=== PATIENT | male | born 1940 | race Caucasian/White ===

== ENCOUNTER 2016-08-02 23:28 | Inpatient (IN) | payer MEDICARE ==
[~2016-08-02] VITALS: Ht 177.8 cm; Wt 83.5 kg
[~2016-08-02 23:28] MED LIST: ACET65TA OR; ALBU17IN INH; AMLO5TAB PO; AMLO5TAB2 PO; ASMANEX TWISTHALER INH; ASPI325T PO; AVEL1TAB PO; CEFT500T OR; CELE20TA PO; CITA20TA4 PO; FLUN25SP; FLUNISOLIDE; FOSI20TA2 PO; LEVO500T32 PO; LISI-538 PO; PRED10TA PO; PROS5TAB PO; SIMV40TA2 PO; SYMB80INH INH; TIOT18INH INH; XOPEAER IN; ZITH250T OR; [UNRECOGNIZED DRUG - OTHER] INH
[2016-08-03] MEDS ORDERED: dexameTHASONE 4 MG/ML 1ML VIAL (J1100) As Ordered ONE (00:11)
[2016-08-03] MEDS ORDERED: IPRATROPIUM 0.5MG/ALBUTEROL 2.5MG INH SOL UD 3ML (DUONEB)(J7620) As Ordered ONE ×3 (00:23→01:16)
[2016-08-03 00:34] LABS: BASO % 0.3 % (0.0-1.0); EOS # 0.3 K/mm3 (0.0-0.50); EOS % 4.3 % (0.0-3.0); LARGE UNSTAINED CELL # 0.2 K/mm3 (0.0-0.4); LARGE UNSTAINED CELL % 2.7 % (0.0-4.0); LYMPH # 1.3 K/mm3 (1.5-4.5); LYMPH % 14.5 % (24.0-44.0); MEAN CORPUSCULAR HEMOGLOBIN 30.4 pg (27.0-33.0); MEAN CORPUSCULAR HGB CONC 32.7 g/dl (32.0-36.5); MONO # 0.5 K/mm3 (0.0-0.8); MONO % 6.7 % (0.0-5.0); NEUTROPHILS # 5.3 K/mm3 (1.8-7.7); NEUTROPHILS % 71.6 % (36.0-66.0); PLATELET COUNT, AUTOMATED 276 k/mm3 (150-450); RED CELL DISTRIBUTION WIDTH 14.4 % (11.5-14.5); WHITE BLOOD COUNT 7.4 K/mm3 (4.0-10.0)
[2016-08-03 00:43] LABS: ABG BASE EXCESS -4.9 (-2.0-2.0); ABG DEVICE NASAL CANN; ABG HCO3 19.1 MEQ/L (22.0-26.0); ABG PARTIAL PRESSURE CO2 32.4 mmHg (35.0-45.0); ABG PARTIAL PRESSURE O2 61.8 mmHg (75.0-100.0); ABG STANDARD HCO3 20.3 MEQ/L (22.0-26.0); ABG TOTAL CO2 20.1 MEQ/L (23.0-31.0); ABG pH (ARTERIAL) 7.388 UNITS (7.350-7.450)
[2016-08-03 00:51] LABS: CALCIUM LEVEL 8.2 MG/DL (8.8-10.2); CREATININE FOR GFR 1.57 MG/DL (0.70-1.30); GLOMERULAR FILTRATION RATE 46.1 (>42); POTASSIUM SERUM 3.9 MEQ/L (3.5-5.1)
[2016-08-03] MEDS ORDERED: IPRATROPIUM 0.5MG/ALBUTEROL 2.5MG INH SOL UD 3ML (DUONEB)(J7620) NEB PRN (04:30)
[2016-08-03] MEDS ORDERED: ACETAMINOPHEN TAB 650MG DOSE (2X325MG) PO PRN (04:45)
[2016-08-03] MEDS ORDERED: ONDANSETRON 4MG/2ML VIAL (J2405) IV PRN (04:45)
--- NOTE | 2016-08-03 05:39 | EDDOCDS ---
"Nurse's Notes [facility] Name: Shahram Arthur Age: 75 yrs Sex: Male : 1940 Arrival Date: 08/02/2016 Time: 23:28 Bed 9 Private MD: Diagnosis: Chronic obstructive pulmonary disease with (acute) exacerbation Presentation: 08/02 23:48 Presenting complaint: Patient states: Increased SOB since Thursday so called EMS. Adult ko2 Sepsis Screening: The patient does not have new or worsening altered mentation. Patient's respiratory rate is less than 22. Systolic blood pressure is greater than 100. Patient has a qSOFA score of 0- Negative Sepsis Screen. Suicide/Homicide risk assessment- the patient denies having any suicidal and/or homicidal ideations and does not present with any other emotional, behavioral or mental health complaints. Status: Patient is not a office services representative or dependent. Transition of care: patient was not received from another setting of care. Care prior to arrival: See EMS report. Medications administered prior to arrival: Albuterol Neb X2 , Atrovent and Solumedrol 125mg administered by EMS. 23:48 Acuity: PASCUAL Level 3 ko2 23:48 Method Of Arrival: Ambulance ko2 Triage Assessment: 23:51 General: Appears in no apparent distress. Pain: Denies pain. The patient is triaged at ko2 the bedside. See Assessment in Nurses Notes section of ED record. Neurological: Level of Consciousness is awake, alert. Cardiovascular: Heart tones S1 S2 present Rhythm is regular. Respiratory: Onset: The symptoms/episode began/occurred gradually, Airway is patent Respiratory effort is even, unlabored, Breath sounds are diminished bilaterally. GI: Abdomen is non- distended. Derm: Skin is normal. Historical: - Allergies: No known drug Allergies; - Home Meds: 1. amlodipine 5 mg Oral tab 1 tab once daily 2. aspirin 325 mg Oral TbEC 1 tab once daily 3. citalopram 20 mg Oral tab 1 tab once daily 4. finasteride 5 mg oral tab 1 tab once daily 5. flunisolide 2 spray daily 6. lisinopril 20 mg Oral tab 1 tab once daily 7. simvastatin 40 mg Oral tab 1 tab every other day 8. Spiriva with HandiHaler 18 mcg Inhl CpDv 1 cap once daily 9. symbicort 2 puff twice a day 10. ventalin 1 spray daily - PMHx: COPD; CVA; Depression; Hypertension; hyperlipidemia; - PSHx: none; - Social history: Smoking status: Patient states former smoker of tobacco. No barriers to communication noted, The patient speaks fluent [place], Speaks appropriately for age. - Family history: Not pertinent. - : The pt / caregiver states he / she is not on anticoagulants. Home medication list is obtained from the patient. - Exposure Risk Screening:: None identified. Screenin/05 00:26 Screening information is obtained from the patient. Fall risk: No risks identified. ko2 Assistance ADL's: requires no assistance with activities of daily living. Abuse/DV Screen: The patient / caregiver reports he/she is: not in a situation that causes fear, pain or injury. Nutritional screening: No deficits noted. Advance Directives: Currently, there is no health care proxy. There is no active DNR order. There is no living will. There is no Power of Visual Education Director. 00:27 home support is adequate. ko2 Assessment: 08/02 23:52 General: See triage assessment. ko2 08/03 01:08 General: Appears in no apparent distress, comfortable, Behavior is appropriate for age, ko2 cooperative. Pain: Denies pain. Neurological: Level of Consciousness is awake, alert. Cardiovascular: Rhythm is regular. Respiratory: Airway is patent Respiratory effort is even, unlabored. Derm: Skin is normal. 02:00 General: Appears in no apparent distress, comfortable, Behavior is appropriate for age, ko2 cooperative. Pain: Denies pain. Neurological: Level of Consciousness is awake, alert. Respiratory: Airway is patent Respiratory effort is even, unlabored. Derm: Skin is normal. 03:06 General: Appears comfortable, Behavior is cooperative. Pain: Denies pain. Neurological: ko2 Level of Consciousness is awake, alert. Respiratory: Airway is patent Respiratory effort is even, unlabored. Derm: Skin is pink, warm & dry. 04:18 General: Appears in no apparent distress, comfortable, Behavior is appropriate for age, ko2 cooperative. Neurological: Level of Consciousness is awake, alert. Respiratory: Airway is patent Respiratory effort is even, unlabored. Derm: Skin is normal. 05:01 General: Appears in no apparent distress, comfortable, Behavior is appropriate for age, ko2 cooperative. Neurological: Level of Consciousness is awake, alert. Respiratory: Airway is patent Respiratory effort is even, unlabored. Derm: Skin is normal. Vital Signs: 08/02 23:39 BP 136 / 66 (auto/); 23:42 BP 136 / 66; Pulse 76; Resp 20; Temp 98.7(TE); Pulse Ox 92% on R/A; Weight 79.83 kg estrella (R); Height 5 ft. 10 in. (177.80 cm) (R); Pain 0/10; 23:42 Pulse 76 MON; Pulse Ox 93% ; ko2 23:53 Pulse 68 MON; Pulse Ox 92% ; ko2 23:54 BP 127 / 55 (auto/); ko2 08/03 00:07 Pulse 70 MON; Pulse Ox 92% ; ko2 00:09 BP 120 / 58 (auto/); ko2 00:24 BP 144 / 63 (auto/); ko2 00:24 Pulse 78 MON; Pulse Ox 90% ; ko2 00:44 Pulse 76 MON; Pulse Ox 90% ; ko2 00:54 BP 132 / 63 (auto/); ko2 01:39 BP 141 / 70 (auto/); ko2 01:42 Pulse 92 MON; Pulse Ox 89% ; ko2 01:52 Pulse 98 MON; Pulse Ox 87% ; ko2 01:54 BP 122 / 69 (auto/); ko2 02:09 BP 136 / 76 (auto/); ko2 02:09 Pulse 106 MON; Pulse Ox 89% ; ko2 02:24 BP 131 / 63 (auto/); ko2 02:24 Pulse 106 MON; Pulse Ox 88% ; ko2 02:39 Pulse 106 MON; Pulse Ox 88% ; ko2 02:39 BP 141 / 72 (auto/); ko2 02:40 Pulse 102 MON; Pulse Ox 89% ; ko2 02:54 BP 110 / 55 (auto/); ko2 05:02 BP 133 / 60; Pulse 85; Resp 18; Temp 98.1; Pulse Ox 92% on NC; Pain 0/10; ko2 08/02 23:42 Body Mass Index 25.25 (79.83 kg, 177.80 cm) estrella Vitals: 00:26 Log In Time N/A - ambulance arrival. ko2 ED Course: 08/02 23:29 Patient visited by Irvin Greenberg, Dredge Mechanic. ml3 23:29 Patient moved to Waiting ml3 23:38 Inga Collier,RN is Primary Nurse. ml3 23:38 Hunter Palacio DO is Attending Physician. cs11 23:38 Patient visited by Hunter Palacio DO. cs11 23:38 Patient moved to 9 ml3 23:42 Patient visited by Shellie Zhu PCA. estrella 23:42 Pt greeted and oriented to ED. Patient advised of names of staff involved in care, estrella location of call mccann, wait times and NPO status. Patient has correct armband on for positive identification. Placed in gown. Bed in low position. Call light in reach. Side rails up X2. court monitor on. Pulse ox on. NIBP on. 23:49 Triage Initiated ko2 23:53 Maintain field IV. Dressing intact. Good blood return noted. Site clean & dry. Gauge & ko2 site: 18 gauge left AC. 08/03 00:22 Patient visited by Inga Collier RN. ko2 00:23 CBC with Diff Sent. ko2 00:23 MED Profile Sent. ko2 00:23 BNP Sent. ko2 00:27 The patient / caregiver is instructed regarding the plan of care and ED course. ko2 00:33 -Arterial Blood Gas Sent. jh6 00:54 [facility] Payment Agreement was scanned into [employer] - innov[employer] | mentor | invest and attached to record. pm4 01:08 Patient visited by Inga Collier RN. ko2 02:09 Patient visited by Inga Collier,MARCIA. ko2 03:06 Patient visited by Inga Collier RN. ko2 04:03 Patient visited by Inga Collier,MARCIA. ko2 04:04 Jenny Vicente is Hospitalizing Provider. cs11 05:01 No procedures done that require assistance. ko2 Administered Medications: 00:22 Drug: Dexamethasone 8 mg [dexamethasone 4 mg/mL injection solution] Route: IV; Rate: ko2 bolus; Site: left antecubital; 00:25 Drug: Albuterol-Ipratropium 1 neb [ipratropium-albuterol 0.5 mg-3 mg(2.5 mg base)/3 mL [facility] nebulization soln (1 neb)] Route: Nebulizer; 00:54 Drug: Albuterol-Ipratropium 1 neb [ipratropium-albuterol 0.5 mg-3 mg(2.5 mg base)/3 mL 6 nebulization soln (1 neb)] Route: Nebulizer; 01:17 Drug: Albuterol-Ipratropium 1 neb [ipratropium-albuterol 0.5 mg-3 mg(2.5 mg base)/3 mL 6 nebulization soln (1 neb)] Route: Nebulizer; RT: 00:25 Initial Med Neb Given as ordered Patient was instructed and evaluated on procedure jh6 Patient tolerated procedure well without adverse effect. Respiratory: Airway is patent Respiratory effort is even, unlabored, Respiratory pattern is regular symmetrical, Breath sounds are diminished in left posterior upper lobe, right posterior upper lobe, left posterior lower lobe, right posterior middle lobe and right posterior lower lobe. 00:33 ABG's drawn from left radial artery pressure held for 5 minutes no bleeding noted jh6 pressure bandage applied specimen sent pt. tolerated well. Respiratory: Airway is patent Respiratory effort is even, unlabored, Respiratory pattern is regular symmetrical, Breath sounds are clear in left posterior upper lobe, right posterior upper lobe, left posterior lower lobe, right posterior middle lobe and right posterior lower lobe Breath sounds are diminished in left posterior upper lobe, right posterior upper lobe, left posterior lower lobe, right posterior middle lobe and right posterior lower lobe. 00:54 Subsequent Med Neb Given as ordered Patient was reinforced on procedure Patient jh6 tolerated procedure well without adverse effect. Respiratory: Airway is patent Respiratory effort is even, unlabored, Respiratory pattern is regular symmetrical, Breath sounds with crackles in left posterior lower lobe and right posterior lower lobe Breath sounds are diminished in left posterior upper lobe, right posterior upper lobe, left posterior lower lobe, right posterior middle lobe and right posterior lower lobe. 01:02 Respiratory: Airway is patent Respiratory effort is even, unlabored, Respiratory jh6 pattern is regular symmetrical, Breath sounds with crackles in left posterior lower lobe and right posterior lower lobe Breath sounds are diminished in left posterior upper lobe, right posterior upper lobe, left posterior lower lobe, right posterior middle lobe and right posterior lower lobe. 01:18 Respiratory: Airway is patent Respiratory effort is even, unlabored, Respiratory jh6 pattern is regular symmetrical, Breath sounds with crackles in left posterior lower lobe and right posterior lower lobe Breath sounds are diminished in left posterior upper lobe, right posterior upper lobe, left posterior lower lobe, right posterior middle lobe and right posterior lower lobe. 01:27 Respiratory: Airway is patent Respiratory effort is even, unlabored, Respiratory jh6 pattern is regular symmetrical, Breath sounds with crackles in left posterior lower lobe, right posterior middle lobe and right posterior lower lobe Breath sounds are diminished in left posterior upper lobe, right posterior upper lobe, left posterior lower lobe, right posterior middle lobe and right posterior lower lobe. Order Results: Lab Order: CBC with Diff; SPEC'M 08/03/16 00:19 Test: WHITE BLOOD COUNT; Value: 7.4; Range: 4.0-10.0; Units: K/mm3; Status: F Test: RED BLOOD COUNT; Value: 4.09; Range: 4.30-6.10; Abnormal: Below low normal; Units: M/mm3; Status: F Test: HEMOGLOBIN; Value: 12.4; Range: 14.0-18.0; Abnormal: Below low normal; Units: g/dl; Status: F Test: HEMATOCRIT; Value: 38.0; Range: 42.0-52.0; Abnormal: Below low normal; Units: %; Status: F Test: MEAN CORPUSCULAR VOLUME; Value: 93.0; Range: 80.0-96.0; Units: fl; Status: F Test: MEAN CORPUSCULAR HEMOGLOBIN; Value: 30.4; Range: 27.0-33.0; Units: pg; Status: F Test: MEAN CORPUSCULAR HGB CONC; Value: 32.7; Range: 32.0-36.5; Units: g/dl; Status: F Test: RED CELL DISTRIBUTION WIDTH; Value: 14.4; Range: 11.5-14.5; Units: %; Status: F Test: PLATELET COUNT, AUTOMATED; Value: 276; Range: 150-450; Units: k/mm3; Status: F Test: NEUTROPHILS %; Value: 71.6; Range: 36.0-66.0; Abnormal: Above high normal; Units: %; Status: F Test: LYMPH %; Value: 14.5; Range: 24.0-44.0; Abnormal: Below low normal; Units: %; Status: F Test: MONO %; Value: 6.7; Range: 0.0-5.0; Abnormal: Above high normal; Units: %; Status: F Test: EOS %; Value: 4.3; Range: 0.0-3.0; Abnormal: Above high normal; Units: %; Status: F Test: BASO %; Value: 0.3; Range: 0.0-1.0; Units: %; Status: F Test: LARGE UNSTAINED CELL %; Value: 2.7; Range: 0.0-4.0; Units: %; Status: F Test: NEUTROPHILS #; Value: 5.3; Range: 1.8-7.7; Units: K/mm3; Status: F Test: LYMPH #; Value: 1.3; Range: 1.5-4.5; Abnormal: Below low normal; Units: K/mm3; Status: F Test: MONO #; Value: 0.5; Range: 0.0-0.8; Units: K/mm3; Status: F Test: EOS #; Value: 0.3; Range: 0.0-0.50; Units: K/mm3; Status: F Test: BASO #; Value: 0.0; Range: 0.0-0.2; Units: K/mm3; Status: F Test: LARGE UNSTAINED CELL #; Value: 0.2; Range: 0.0-0.4; Units: K/mm3; Status: F Lab Order: [facility] Profile; SPEC'M 08/03/16 00:19 Test: GLUCOSE, FASTING; Value: 111; Range: 83-110; Abnormal: Above high normal; Units: MG/DL; Status: F Test: BLOOD UREA NITROGEN; Value: 30; Range: 7-18; Abnormal: Above high normal; Units: MG/DL; Status: F Test: CREATININE FOR GFR; Value: 1.57; Range: 0.70-1.30; Abnormal: Above high normal; Units: MG/DL; Status: F Test: GLOMERULAR FILTRATION RATE; Value: 46.1; Range: >42; Status: F Test: SODIUM LEVEL; Value: 138; Range: 136-145; Units: MEQ/L; Status: F Test: POTASSIUM SERUM; Value: 3.9; Range: 3.5-5.1; Units: MEQ/L; Status: F Test: CHLORIDE LEVEL; Value: 104; Range: 98-107; Units: MEQ/L; Status: F Test: CARBON DIOXIDE LEVEL; Value: 25; Range: 21-32; Units: MEQ/L; Status: F Test: ANION GAP; Value: 9; Range: 8-16; Units: MEQ/L; Status: F Test: CALCIUM LEVEL; Value: 8.2; Range: 8.8-10.2; Abnormal: Below low normal; Units: MG/DL; Status: F Test Note: ; Units are mL/min/1.73 m2 Chronic Kidney Disease Staging per NKF: Stage I & II GFR >=60 Normal to Mildly Decreased Stage III GFR 30-59 Moderately Decreased Stage IV GFR 15-29 Severely Decreased Stage V GFR <15 Very Little GFR Left ESRD GFR <15 on EDGE BASTER Lab Order: BNP; SPEC'M 08/03/16 00:19 Test: BRAIN NATRIURETIC PEPTIDE; Value: 226; Range: <100; Abnormal: Above high normal; Units: PG/ML; Status: F Lab Order: -Arterial Blood Gas; SPEC'M 08/03/16 00:33 Test: ABG pH (ARTERIAL); Value: 7.388; Range: 7.350-7.450; Units: UNITS; Status: F Test: ABG PARTIAL PRESSURE CO2; Value: 32.4; Range: 35.0-45.0; Abnormal: Below low normal; Units: mmHg; Status: F Test: ABG PARTIAL PRESSURE O2; Value: 61.8; Range: 75.0-100.0; Abnormal: Below low normal; Units: mmHg; Status: F Test: ABG TOTAL CO2; Value: 20.1; Range: 23.0-31.0; Abnormal: Below low normal; Units: MEQ/L; Status: F Test: ABG HCO3; Value: 19.1; Range: 22.0-26.0; Abnormal: Below low normal; Units: MEQ/L; Status: F Test: ABG BASE EXCESS; Value: -4.9; Range: -2.0-2.0; Abnormal: Below low normal; Status: F Test: ABG STANDARD HCO3; Value: 20.3; Range: 22.0-26.0; Abnormal: Below low normal; Units: MEQ/L; Status: F Test: ABG O2 SATURATION; Value: 91.7; Range: 95.0-99.0; Abnormal: Below low normal; Units: %; Status: F Test: ABG DEVICE; Value: NASAL RYAN; Status: F Outcome: 04:04 Decision to Hospitalize by Provider. cs11 05:17 Discharge Assessment: Patient awake, alert and oriented x 3. No cognitive and/or ko2 functional deficits noted. Patient verbalized understanding of disposition instructions. patient administered narcotics - no. The following High Risk Discharge criteria are identified: None. Admitted to Floor accompanied by tech, via stretcher, with oxygen. Condition: stable. Discharge instructions given to patient. No special radiology studies were completed. Property sent home with patient. 05:17 Admission hand-off: Report Faxed Fax receipt verified by MARCIA Aguilar 5 Jj. ko2 05:38 Patient left the ED. ko2 Signatures: Irvin Greenberg, Dredge Mechanic Unit ml3 Shellie Zhu, SAND PLANT ATTENDANT SAND PLANT ATTENDANT Nito Beatty jh6 Hunter Palacio, DO cs11 Inga Collier RN RN ko2 Sean Guzman, Reg Reg pm4 MTDD"
--- NOTE | 2016-08-03 05:39 | EDDOCDS ---
Physician Documentation [facility] Name: Shahram Arthur Age: 75 yrs Sex: Male : 1940 Arrival Date: 08/02/2016 Time: 23:28 Bed 9 Private MD: Disposition: 08/03/16 04:04 Hospitalization ordered by Jenny Vicente for Inpatient Admission. Preliminary diagnosis is Chronic obstructive pulmonary disease with (acute) exacerbation. - Bed requested for 5 Gardner. - Status is Inpatient Admission. ko2 - Condition is Stable. - Problem is chronic. - Symptoms have improved. Historical: - Allergies: No known drug Allergies; - Home Meds: 1. amlodipine 5 mg Oral tab 1 tab once daily 2. aspirin 325 mg Oral TbEC 1 tab once daily 3. citalopram 20 mg Oral tab 1 tab once daily 4. finasteride 5 mg oral tab 1 tab once daily 5. flunisolide 2 spray daily 6. lisinopril 20 mg Oral tab 1 tab once daily 7. simvastatin 40 mg Oral tab 1 tab every other day 8. Spiriva with HandiHaler 18 mcg Inhl CpDv 1 cap once daily 9. symbicort 2 puff twice a day 10. ventalin 1 spray daily - PMHx: COPD; CVA; Depression; Hypertension; hyperlipidemia; - PSHx: none; - Social history: Smoking status: Patient states former smoker of tobacco. No barriers to communication noted, The patient speaks fluent Dive[place], Speaks appropriately for age. - Family history: Not pertinent. - : The pt / caregiver states he / she is not on anticoagulants. Home medication list is obtained from the patient. - Exposure Risk Screening:: None identified. Vital Signs: 08/02 23:39 BP 136 / 66 (auto/); ko2 23:42 BP 136 / 66; Pulse 76; Resp 20; Temp 98.7(TE); Pulse Ox 92% on R/A; Weight 79.83 kg / estrella 176 lbs (R); Height 5 ft. 10 in. (177.80 cm) (R); Pain 0/10; 23:42 Pulse 76 MON; Pulse Ox 93% ; ko2 23:53 Pulse 68 MON; Pulse Ox 92% ; ko2 23:54 BP 127 / 55 (auto/); ko2 08/03 00:07 Pulse 70 MON; Pulse Ox 92% ; ko2 00:09 BP 120 / 58 (auto/); ko2 00:24 BP 144 / 63 (auto/); ko2 00:24 Pulse 78 MON; Pulse Ox 90% ; ko2 00:44 Pulse 76 MON; Pulse Ox 90% ; ko2 00:54 BP 132 / 63 (auto/); ko2 01:39 BP 141 / 70 (auto/); ko2 01:42 Pulse 92 MON; Pulse Ox 89% ; ko2 01:52 Pulse 98 MON; Pulse Ox 87% ; ko2 01:54 BP 122 / 69 (auto/); ko2 02:09 BP 136 / 76 (auto/); ko2 02:09 Pulse 106 MON; Pulse Ox 89% ; ko2 02:24 BP 131 / 63 (auto/); ko2 02:24 Pulse 106 MON; Pulse Ox 88% ; ko2 02:39 Pulse 106 MON; Pulse Ox 88% ; ko2 02:39 BP 141 / 72 (auto/); ko2 02:40 Pulse 102 MON; Pulse Ox 89% ; ko2 02:54 BP 110 / 55 (auto/); ko2 05:02 BP 133 / 60; Pulse 85; Resp 18; Temp 98.1; Pulse Ox 92% on NC; Pain 0/10; ko2 08/02 23:42 Body Mass Index 25.25 (79.83 kg, 177.80 cm) estrella MDM: 08/02 23:52 Chest, 2 View (pa\E\lat) Ordered. EDMS 02 00:03 IV Saline Lock ordered. cs11 00:03 Albuterol-Ipratropium 1 neb Nebulizer every 20 minutes x3 ordered. cs11 00:03 Call Respiratory ordered. cs11 00:03 Call Respiratory ordered. cs11 00:03 Dexamethasone 8 mg IV at bolus once ordered. cs11 00:03 Call Respiratory complete. ml3 00:03 Call Respiratory complete. ml3 00:03 CBC with Diff Ordered. EDMS 00:03 MED Profile Ordered. EDMS 00:03 BNP Ordered. EDMS 00:03 -Arterial Blood Gas Ordered. EDMS 00:08 Financial registration complete. pm4 00:54 [facility] [place] Agreement was scanned into [employer] and attached to record. pm4 01:52 CBC with Diff Reviewed. cs11 01:52 MED Profile Reviewed. cs11 01:52 BNP Reviewed. cs11 01:52 -Arterial Blood Gas Reviewed. cs11 04:05 BED REQUEST+ADM ordered. EDMS 04:34 ELECTROCARDIOGRAM ADULT ordered. EDMS 04:35 C REACTIVE PROTEIN QUANTITATIV Ordered. EDMS 04:35 COMPLETE BLOOD COUNT Ordered. EDMS 04:35 BASIC METABOLIC PROFILE Ordered. EDMS 04:35 MAGNESIUM LEVEL Ordered. EDMS 04:35 RESPIRATORY PANEL Ordered. EDMS 04:35 BLOOD CULTURES Ordered. EDMS 04:35 SPUTUM CULTURE AND GRAM STAIN Ordered. EDMS 04:35 MRSA SCREEN Ordered. EDMS 04:37 PHYSICAL THERAPY EVAL ONLY ordered. EDMS 04:39 Admission / Observation Status ordered. EDMS 04:39 LOW FAT LOW CHOLESTEROL DIET ordered. EDMS Administered Medications: 00:22 Drug: Dexamethasone 8 mg [dexamethasone 4 mg/mL injection solution] Route: IV; Rate: ko2 bolus; Site: left antecubital; 00:25 Drug: Albuterol-Ipratropium 1 neb [ipratropium-albuterol 0.5 mg-3 mg(2.5 mg base)/3 mL jh6 nebulization soln (1 neb)] Route: Nebulizer; 00:54 Drug: Albuterol-Ipratropium 1 neb [ipratropium-albuterol 0.5 mg-3 mg(2.5 mg base)/3 mL jh6 nebulization soln (1 neb)] Route: Nebulizer; 01:17 Drug: Albuterol-Ipratropium 1 neb [ipratropium-albuterol 0.5 mg-3 mg(2.5 mg base)/3 mL jh6 nebulization soln (1 neb)] Route: Nebulizer; Signatures: Dispatcher [employer] EDMS YariShira amezcuazabeth, Supervisor Costuming Unit ml3 Ivone Dickerson, RN RN [id number] Hunter Palacio DO DO cs11 Inga Collier RN RN ko2 Sean Guzman, Reg Reg pm4 Nito Danielle 6 The chart was reviewed and I authenticate all verbal orders and agree with the evaluation and treatment provided.Attachments: 00:54 [facility] Payment Agreement pm4 MTDD
[2016-08-03 05:45] VITALS: BP 133/68
[2016-08-03] MEDS: AZITHROMYCIN INJ 500 MG, VIAL MATE ADAPTER 1 EACH in D5W 250 ML IV SCH (06:29)
[2016-08-03] MEDS: HEPARIN SOD (PORCINE) 5000 UNITS/ML VIAL SC SCH ×2 (06:29→17:11)
[2016-08-03 06:40] LABS: MEAN CORPUSCULAR HEMOGLOBIN 30.7 pg (27.0-33.0); MEAN CORPUSCULAR HGB CONC 32.9 g/dl (32.0-36.5); MEAN CORPUSCULAR VOLUME 93.1 fl (80.0-96.0); WHITE BLOOD COUNT 4.9 K/mm3 (4.0-10.0)
[2016-08-03 06:59] LABS: CALCIUM LEVEL 8.9 MG/DL (8.8-10.2); CREATININE FOR GFR 1.86 MG/DL (0.70-1.30); GLOMERULAR FILTRATION RATE 37.9 (>42); MAGNESIUM LEVEL 1.8 MG/DL (1.8-2.4); POTASSIUM SERUM 4.2 MEQ/L (3.5-5.1)
[2016-08-03] MEDS: IPRATROPIUM 0.5MG/ALBUTEROL 2.5MG INH SOL UD 3ML (DUONEB)(J7620) NEB SCH ×2 (07:06→12:28)
[2016-08-03] MEDS: methylPREDNISolone INJ 125 MG/2 ML VIAL (J2930) IV SCH ×2 (08:22→16:38)
[2016-08-03] MEDS: SENOKOT S TAB PO SCH ×2 (08:22→20:47)
[2016-08-03] MEDS: cefTRIAXone SOD 1 GM in D5W MINI-BAG PLUS 50 ML IV SCH (08:22)
[2016-08-03] MEDS: PANTOPRAZOLE 40MG TAB (PROTONIX) PO SCH (08:22)
[2016-08-03] MEDS: LISINOPRIL 20 MG TAB PO SCH (08:23)
[2016-08-03] MEDS: amLODIPine 5 MG TAB PO SCH (08:23)
[2016-08-03] MEDS: FLUTICASONE PROP 0.05% NASAL SPRAY 16 GM (FLONASE) SCH ×2 (08:23→20:47)
[2016-08-03] MEDS: guaiFENesin ER 600 MG TAB PO SCH ×2 (08:23→20:48)
--- NOTE | 2016-08-03 08:30 | REP ---
CHEST X-RAY: Two views. HISTORY: Shortness of breath. Comparison chest x-ray 02/16/2016. FINDINGS: EKG monitoring electrodes overlie the chest. The lungs are hyperinflated as before consistent with COPD. Pleural angles are sharp. No infiltrate is seen. Heart is not enlarged. The aorta is calcific and a little tortuous. There are degenerative changes in the thoracic spine. Hilar and mediastinal contours are unchanged. IMPRESSION: Hyperinflation consistent with COPD. No acute disease. Signed by Ryan Mireles MD 08/03/2016 11:01 A
--- NOTE | 2016-08-03 08:39 | HPE ---
DATE OF ADMISSION: 08/03/2016 PRIMARY CARE PROVIDER: Dr. Vin Deras STORAGE BATTERY TESTER: Dr. No CHIEF COMPLAINT: Dyspnea. 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 He denies any fever, chills, chest pain, pressure, or discomfort. Reported dyspnea on exertion and wheeze. Denies any sick contact. Denies any lower extremity swelling, orthopnea, paroxysmal nocturnal dyspnea. Denies any sick contact. Patient quit smoking in 2003. As per patient, last year in July the patient was admitted to the hospital for the same thing, but since then the patient has been doing okay. ALLERGIES: No known drug allergies reported. PAST MEDICAL HISTORY: 1. COPD. 2. CVA. 3. CKD. 4. Depression. 5. Hypertension. 6. Dyslipidemia. PAST SURGICAL HISTORY: Finger surgery right side. SOCIAL HISTORY: Former smoker, quit in 2003, two packs per day smoking for 45 years. Drinks a can of beer every two days. Lives at home with . FAMILY HISTORY: Noncontributory. REVIEW OF SYSTEMS: Negative except for those mentioned in history of present illness (HPI). HOME MEDICATIONS: - Ventolin inhaler as needed daily - Norvasc 5 mg by mouth daily - aspirin 1/2 tablet of 325 mg by mouth daily - Symbicort 80/4.5 mcg inhalation twice a day - citalopram 10 mg by mouth at bedtime - Proscar 5 mg by mouth at bedtime - flunisolide nasal spray twice a day - Levaquin 500 mg by mouth daily - lisinopril 10 mg by mouth daily - Zocor 40 mg by mouth every two days - Spiriva inhaler daily PHYSICAL EXAMINATION: Blood pressure 136/66. Pulse 76. Respirations 20. Temperature 98.7. Pulse oximetry 92% on room air. GENERAL: Patient alert and oriented times three in no acute distress, comfortable. HEENT: Normocephalic, atraumatic. PULMONARY: Bilateral wheeze. Poor air movement. No crackles. CARDIAC: Regular rate and rhythm. Normal S1, S2. ABDOMEN: Soft. Nontender. Nondistended. Umbilical hernia. Hypoactive bowel sounds. EXTREMITIES: No edema bilateral lower extremities. Symmetrical strength bilateral upper and lower. LABORATORY DATA: WBC 7.4, hemoglobin 12.4 over hematocrit 38, platelets 276. Chemistries: Sodium 138, potassium 3.9, chloride 104, bicarbonate 25, BUN 30, creatinine 1.57. AB.38, 32.4, 61.8, 19.1. ASSESSMENT AND PLAN: This is a 75-year-old male patient with underlying medical history of COPD and CVA with slight right sided deficit, hypoxemia, hypertension, CKD, and depression admitted with acute COPD exacerbation. PROBLEMS: 1. Acute COPD exacerbation. ABG is appreciated. Followup C-reactive protein, sputum culture and blood cultures. Possibly secondary to bronchitis. Followup respiratory panel and x-rays. Continue Symbicort, Spiriva and nebulizer treatments. Solu-Medrol, IV steroid, taper as tolerated. Rocephin and azithromycin. Acapella. Mucinex. 2. Hypertension. Monitor blood pressure. Continue home medication. 3. Depression. Continue home medications. 4. Benign prostatic hyperplasia (BPH). Continue home medications. 5. Dyslipidemia. Continue home medications. Continue statin. 6. CVA. Continue aspirin and stating. Monitor blood pressure. 7. CKD. Patient has BUN and creatinine at baseline. Continue to monitor. 8. Deep vein thrombosis (DVT) prophylaxis. Heparin subcutaneous. 9. Disposition planning. Pending clinical improvement.
[2016-08-03] MEDS ORDERED: ASPIRIN 325 MG TAB PO SCH (09:00)
[2016-08-03] MEDS: TIOTROPIUM INHALER/CAPSULE (SPIRIVA) INH SCH (12:29)
[2016-08-03] MEDS: SYMBICORT 160/4.5MCG INHALER 6GM INH SCH ×2 (12:29→18:18)
[2016-08-03 14:00] VITALS: BP 106/59
[2016-08-03] MEDS ORDERED: CEPACOL LOZENGE PO PRN (18:30)
--- NOTE | 2016-08-03 18:46 | IPN ---
DATE: 08/23/2016 SUBJECTIVE: The patient is seen and examined in the room today. The patient stated his breathing showed some improvement. However, he is not at his baseline. He does have chronic obstructive pulmonary disease (COPD). However, he does not require any oxygen support at the baseline. No overnight events reported. The patient has difficulty providing sputum sample since admission. OBJECTIVE: VITAL SIGNS: Temperature is 97.2, pulse 91, respirations 22, blood pressure is 133/68, pulse oximetry is 94% with 2 liters nasal cannula. GENERAL: No sign of acute distress, alert, oriented times three. HEENT: Normocephalic, atraumatic. Extraocular movement intact. CARDIOVASCULAR: Positive S1, S2, regular rate. LUNGS: Breath sounds bilateral significant wheezes. Poor air movement. No crackles. ABDOMEN: Soft, nontender, nondistended. Bowel sounds are present. No rebound. No guarding. Positive for umbilical hernia. EXTREMITIES: No edema. No cyanosis. LABORATORY DATA: White blood count (WBC) is 4.9, hemoglobin 12.7, hematocrit 38.4, platelet count is 294. Sodium is 137, potassium is 4.2, chloride is 103, carbon dioxide is 21, BUN is 29, creatine is 1.86. Glomerular filtration rate (GFR) is 37.9, fasting glucose 184, calcium is 8.9, magnesium 1.8, C-reactive protein (CRP) 0.45, BNP is 226. ASSESSMENT AND PLAN: 1. Chronic obstructive pulmonary disease (COPD) exacerbation. The patient still requires oxygen support. The patient will have nebulizer treatment as needed. Will obtain the sputum culture and respiratory viral panel. Currently, the patient is on empiric antibiotics. The patient is on IV steroids. The patient has Mucinex and Acapella. 2. Hypertension. Blood pressure was in normal range. Norvasc and lisinopril 3. Benign prostatic hypertrophy (BPH). Continue Proscar. 4. Chronic kidney disease. Continue monitoring BUN and creatine. 5. Deep vein thrombosis (DVT) prophylaxis. Continue heparin.
[2016-08-03] MEDS: ATORVASTATIN 20 MG TAB PO SCH (20:47)
[2016-08-03] MEDS: FINASTERIDE 5 MG TAB PO SCH (20:48)
[2016-08-03] MEDS: CitaloPRAM (CeleXA) 10 MG TABLET PO SCH (20:48)
[2016-08-03 22:00] VITALS: BP 128/69
[2016-08-04] MEDS: methylPREDNISolone INJ 125 MG/2 ML VIAL (J2930) IV SCH ×4 (00:09→23:32)
[2016-08-04] MEDS: IPRATROPIUM 0.5MG/ALBUTEROL 2.5MG INH SOL UD 3ML (DUONEB)(J7620) NEB SCH ×4 (02:00→20:00)
[2016-08-04 06:00] VITALS: BP 127/58
[2016-08-04] MEDS: AZITHROMYCIN INJ 500 MG, VIAL MATE ADAPTER 1 EACH in D5W 250 ML IV SCH (06:08)
[2016-08-04] MEDS: HEPARIN SOD (PORCINE) 5000 UNITS/ML VIAL SC SCH ×2 (06:08→17:10)
[2016-08-04 06:51] LABS: MEAN CORPUSCULAR HEMOGLOBIN 30.8 pg (27.0-33.0); MEAN CORPUSCULAR HGB CONC 32.9 g/dl (32.0-36.5); MEAN CORPUSCULAR VOLUME 93.5 fl (80.0-96.0); RED CELL DISTRIBUTION WIDTH 14.7 % (11.5-14.5); WHITE BLOOD COUNT 14.4 K/mm3 (4.0-10.0)
[2016-08-04 07:15] LABS: ANION GAP 9 MEQ/L (8-16); BLOOD UREA NITROGEN 32 MG/DL (7-18); CALCIUM LEVEL 8.5 MG/DL (8.8-10.2); CARBON DIOXIDE LEVEL 25 MEQ/L (21-32); CHLORIDE LEVEL 103 MEQ/L (98-107); CREATININE FOR GFR 1.71 MG/DL (0.70-1.30); GLOMERULAR FILTRATION RATE 41.8 (>42); GLUCOSE, FASTING 125 MG/DL (83-110); MAGNESIUM LEVEL 2.1 MG/DL (1.8-2.4); POTASSIUM SERUM 4.4 MEQ/L (3.5-5.1); SODIUM LEVEL 137 MEQ/L (136-145)
[2016-08-04] MEDS: cefTRIAXone SOD 1 GM in D5W MINI-BAG PLUS 50 ML IV SCH (07:57)
[2016-08-04] MEDS: TIOTROPIUM INHALER/CAPSULE (SPIRIVA) INH SCH (08:00)
[2016-08-04] MEDS: SYMBICORT 160/4.5MCG INHALER 6GM INH SCH ×2 (08:01→20:38)
[2016-08-04] MEDS: SENOKOT S TAB PO SCH ×2 (08:17→20:34)
[2016-08-04] MEDS: guaiFENesin ER 600 MG TAB PO SCH ×2 (08:17→20:34)
[2016-08-04] MEDS: ASPIRIN 81 MG CHEW TABLET PO SCH (08:17)
[2016-08-04] MEDS: PANTOPRAZOLE 40MG TAB (PROTONIX) PO SCH (08:18)
[2016-08-04] MEDS: LISINOPRIL 20 MG TAB PO SCH (08:18)
[2016-08-04] MEDS: amLODIPine 5 MG TAB PO SCH (08:19)
[2016-08-04] MEDS: FLUTICASONE PROP 0.05% NASAL SPRAY 16 GM (FLONASE) SCH ×2 (08:19→20:34)
[2016-08-04 14:00] VITALS: BP 130/59
[2016-08-04] MEDS: CitaloPRAM (CeleXA) 10 MG TABLET PO SCH (20:35)
[2016-08-04] MEDS: FINASTERIDE 5 MG TAB PO SCH (20:35)
[2016-08-04] MEDS: ATORVASTATIN 20 MG TAB PO SCH (20:35)
--- NOTE | 2016-08-04 20:54 | IPN ---
DATE: 08/04/2016 SUBJECTIVE: The patient seen and examined in the room today. The patient stated his breathing showed significant improvement. Early in the morning the patient is still requiring oxygen support throughout her whole morning. The patient is being tried to wean off her oxygen. At the time of the encounter, the patient is able to breathe normally on room air, however, during any minor exertion, the patient stars having significant wheezes and a cough. No overnight events are reported. OBJECTIVE: VITAL SIGNS: Temperature 96.5, pulse is 65, respirations 20, blood pressure 127/58, pulse oximetry 91% on 2 liters nasal cannula. GENERAL: No sign of acute distress. Alert and oriented times three. HEENT: Normocephalic, atraumatic. Extraocular motors grossly intact. CARDIOVASCULAR: Positive S1, S2, regular rate. LUNGS: Bilateral wheezes. Full respiratory movements. No crackles. ABDOMEN: Soft, nontender, nondistended. Bowel sounds present. No rebound. No guarding. EXTREMITIES: No edema, no cyanosis. LABORATORY DATA: WBC 14.4, hemoglobin 11.1, hematocrit 33.8, platelet count is 269. Sodium 137, potassium 4.4, chloride 103, carbon dioxide 25, BUN 32, creatinine 1.7. GFR is 41.8, fasting glucose 125, calcium 8.5, magnesium 2.1. C-reactive protein is less than 0.3. ASSESSMENT AND PLAN: 1. Acute respiratory distress secondary to COPD exacerbation. The patient shows significant improvement. Continue with oxygen. Continue with nebulizer treatments. The patient is on IV steroids. The patient on empiric antibiotics. 2. COPD exacerbation secondary to respiratory syncytial virus (RSV). Continue with supportive care. 3. Hypertension. On Norvasc and lisinopril. 4. Benign prostatic hypertrophy (BPH). On Proscar. 5. Chronic kidney disease. Continue to monitor BUN and creatinine. 6. Deep venous thrombosis (DVT) prophylaxis. Patient on heparin.
[2016-08-04 22:00] VITALS: BP 119/65
[2016-08-05] MEDS: IPRATROPIUM 0.5MG/ALBUTEROL 2.5MG INH SOL UD 3ML (DUONEB)(J7620) NEB SCH (02:00)
[2016-08-05 06:00] VITALS: BP 165/80
[2016-08-05] MEDS: HEPARIN SOD (PORCINE) 5000 UNITS/ML VIAL SC SCH ×2 (06:00→18:01)
[2016-08-05] MEDS: AZITHROMYCIN INJ 500 MG, VIAL MATE ADAPTER 1 EACH in D5W 250 ML IV SCH (06:00)
--- NOTE | 2016-08-05 06:39 | EDDOCDS ---
Physician Documentation [facility] Name: Shahram Arthur Age: 75 yrs Sex: Male : 1940 Arrival Date: 08/02/2016 Time: 23:28 Bed 9 Private MD: Disposition: 08/03/16 04:04 Hospitalization ordered by Jenny Vicente for Inpatient Admission. Preliminary diagnosis is Chronic obstructive pulmonary disease with (acute) exacerbation. - Bed requested for 5 Gardner. - Status is Inpatient Admission. ko2 - Condition is Stable. - Problem is chronic. - Symptoms have improved. Historical: - Allergies: No known drug Allergies; - Home Meds: 1. amlodipine 5 mg Oral tab 1 tab once daily 2. aspirin 325 mg Oral TbEC 1 tab once daily 3. citalopram 20 mg Oral tab 1 tab once daily 4. finasteride 5 mg oral tab 1 tab once daily 5. flunisolide 2 spray daily 6. lisinopril 20 mg Oral tab 1 tab once daily 7. simvastatin 40 mg Oral tab 1 tab every other day 8. Spiriva with HandiHaler 18 mcg Inhl CpDv 1 cap once daily 9. symbicort 2 puff twice a day 10. ventalin 1 spray daily - PMHx: COPD; CVA; Depression; Hypertension; hyperlipidemia; - PSHx: none; - Social history: Smoking status: Patient states former smoker of tobacco. No barriers to communication noted, The patient speaks fluent Frisian, Speaks appropriately for age. - Family history: Not pertinent. - : The pt / caregiver states he / she is not on anticoagulants. Home medication list is obtained from the patient. - Exposure Risk Screening:: None identified. Vital Signs: 08/02 23:39 BP 136 / 66 (auto/); ko2 23:42 BP 136 / 66; Pulse 76; Resp 20; Temp 98.7(TE); Pulse Ox 92% on R/A; Weight 79.83 kg / estrella 176 lbs (R); Height 5 ft. 10 in. (177.80 cm) (R); Pain 0/10; 23:42 Pulse 76 MON; Pulse Ox 93% ; ko2 23:53 Pulse 68 MON; Pulse Ox 92% ; ko2 23:54 BP 127 / 55 (auto/); ko2 08/03 00:07 Pulse 70 MON; Pulse Ox 92% ; ko2 00:09 BP 120 / 58 (auto/); ko2 00:24 BP 144 / 63 (auto/); ko2 00:24 Pulse 78 MON; Pulse Ox 90% ; ko2 00:44 Pulse 76 MON; Pulse Ox 90% ; ko2 00:54 BP 132 / 63 (auto/); ko2 01:39 BP 141 / 70 (auto/); ko2 01:42 Pulse 92 MON; Pulse Ox 89% ; ko2 01:52 Pulse 98 MON; Pulse Ox 87% ; ko2 01:54 BP 122 / 69 (auto/); ko2 02:09 BP 136 / 76 (auto/); ko2 02:09 Pulse 106 MON; Pulse Ox 89% ; ko2 02:24 BP 131 / 63 (auto/); ko2 02:24 Pulse 106 MON; Pulse Ox 88% ; ko2 02:39 Pulse 106 MON; Pulse Ox 88% ; ko2 02:39 BP 141 / 72 (auto/); ko2 02:40 Pulse 102 MON; Pulse Ox 89% ; ko2 02:54 BP 110 / 55 (auto/); ko2 05:02 BP 133 / 60; Pulse 85; Resp 18; Temp 98.1; Pulse Ox 92% on NC; Pain 0/10; ko2 08/02 23:42 Body Mass Index 25.25 (79.83 kg, 177.80 cm) estrella MDM: 08/02 23:52 Chest, 2 View (pa\E\lat) Ordered. EDMS 02 00:03 IV Saline Lock ordered. cs11 00:03 Albuterol-Ipratropium 1 neb Nebulizer every 20 minutes x3 ordered. cs11 00:03 Call Respiratory ordered. cs11 00:03 Call Respiratory ordered. cs11 00:03 Dexamethasone 8 mg IV at bolus once ordered. cs11 00:03 Call Respiratory complete. ml3 00:03 Call Respiratory complete. ml3 00:03 CBC with Diff Ordered. EDMS 00:03 MED Profile Ordered. EDMS 00:03 BNP Ordered. EDMS 00:03 -Arterial Blood Gas Ordered. EDMS 00:08 Financial registration complete. pm4 00:54 [place] [place] into [employer] and attached to record. pm4 01:52 CBC with Diff Reviewed. cs11 01:52 MED Profile Reviewed. cs11 01:52 BNP Reviewed. cs11 01:52 -Arterial Blood Gas Reviewed. cs11 04:05 BED REQUEST+ADM ordered. EDMS 04:34 ELECTROCARDIOGRAM ADULT ordered. EDMS 04:35 C REACTIVE PROTEIN QUANTITATIV Ordered. EDMS 04:35 COMPLETE BLOOD COUNT Ordered. EDMS 04:35 BASIC METABOLIC PROFILE Ordered. EDMS 04:35 MAGNESIUM LEVEL Ordered. EDMS 04:35 RESPIRATORY PANEL Ordered. EDMS 04:35 BLOOD CULTURES Ordered. EDMS 04:35 SPUTUM CULTURE AND GRAM STAIN Ordered. EDMS 04:35 MRSA SCREEN Ordered. EDMS 04:37 PHYSICAL THERAPY EVAL ONLY ordered. EDMS 04:39 Admission / Observation Status ordered. EDMS 04:39 LOW FAT LOW CHOLESTEROL DIET ordered. EDMS 12:49 T-Sheet-- Draft Copy was scanned into [employer] and attached to record. gb 02 12:24 PCR was scanned into [employer] and attached to record. gb Administered Medications: 08/03 00:22 Drug: Dexamethasone 8 mg [dexamethasone 4 mg/mL injection solution] Route: IV; Rate: ko2 bolus; Site: left antecubital; 00:25 Drug: Albuterol-Ipratropium 1 neb [ipratropium-albuterol 0.5 mg-3 mg(2.5 mg base)/3 mL jh6 nebulization soln (1 neb)] Route: Nebulizer; 00:54 Drug: Albuterol-Ipratropium 1 neb [ipratropium-albuterol 0.5 mg-3 mg(2.5 mg base)/3 mL jh6 nebulization soln (1 neb)] Route: Nebulizer; 01:17 Drug: Albuterol-Ipratropium 1 neb [ipratropium-albuterol 0.5 mg-3 mg(2.5 mg base)/3 mL jh6 nebulization soln (1 neb)] Route: Nebulizer; Signatures: Dispatcher Animail EDMS Kelly Salas, Reg Reg gb Irvin Greenberg, Biodiesel Plant Superintendent Unit ml3 Ivone Dickerson, RN RN [phone] Hunter Palacio DO DO cs11 Inga Collier RN RN ko2 Sean Guzman, Reg Reg pm4 Nito Danielle jh6 The chart was reviewed and I authenticate all verbal orders and agree with the evaluation and treatment provided.Attachments: 00:54 [place] [place] pm4 12:49 T-Sheet-- Draft Copy gb Chart Complete MTDD
--- NOTE | 2016-08-05 06:39 | EDDOCDS ---
Physician Documentation [facility] Name: Shahram Arthur Age: 75 yrs Sex: Male : 1940 Arrival Date: 08/02/2016 Time: 23:28 Bed 9 Private MD: Disposition: 08/03/16 04:04 Hospitalization ordered by Jenny Vicente for Inpatient Admission. Preliminary diagnosis is Chronic obstructive pulmonary disease with (acute) exacerbation. - Bed requested for 5 Gardner. - Status is Inpatient Admission. ko2 - Condition is Stable. - Problem is chronic. - Symptoms have improved. Historical: - Allergies: No known drug Allergies; - Home Meds: 1. amlodipine 5 mg Oral tab 1 tab once daily 2. aspirin 325 mg Oral TbEC 1 tab once daily 3. citalopram 20 mg Oral tab 1 tab once daily 4. finasteride 5 mg oral tab 1 tab once daily 5. flunisolide 2 spray daily 6. lisinopril 20 mg Oral tab 1 tab once daily 7. simvastatin 40 mg Oral tab 1 tab every other day 8. Spiriva with HandiHaler 18 mcg Inhl CpDv 1 cap once daily 9. symbicort 2 puff twice a day 10. ventalin 1 spray daily - PMHx: COPD; CVA; Depression; Hypertension; hyperlipidemia; - PSHx: none; - Social history: Smoking status: Patient states former smoker of tobacco. No barriers to communication noted, The patient speaks fluent Croatian, Speaks appropriately for age. - Family history: Not pertinent. - : The pt / caregiver states he / she is not on anticoagulants. Home medication list is obtained from the patient. - Exposure Risk Screening:: None identified. Vital Signs: 08/02 23:39 BP 136 / 66 (auto/); ko2 23:42 BP 136 / 66; Pulse 76; Resp 20; Temp 98.7(TE); Pulse Ox 92% on R/A; Weight 79.83 kg / estrella 176 lbs (R); Height 5 ft. 10 in. (177.80 cm) (R); Pain 0/10; 23:42 Pulse 76 MON; Pulse Ox 93% ; ko2 23:53 Pulse 68 MON; Pulse Ox 92% ; ko2 23:54 BP 127 / 55 (auto/); ko2 08/03 00:07 Pulse 70 MON; Pulse Ox 92% ; ko2 00:09 BP 120 / 58 (auto/); ko2 00:24 BP 144 / 63 (auto/); ko2 00:24 Pulse 78 MON; Pulse Ox 90% ; ko2 00:44 Pulse 76 MON; Pulse Ox 90% ; ko2 00:54 BP 132 / 63 (auto/); ko2 01:39 BP 141 / 70 (auto/); ko2 01:42 Pulse 92 MON; Pulse Ox 89% ; ko2 01:52 Pulse 98 MON; Pulse Ox 87% ; ko2 01:54 BP 122 / 69 (auto/); ko2 02:09 BP 136 / 76 (auto/); ko2 02:09 Pulse 106 MON; Pulse Ox 89% ; ko2 02:24 BP 131 / 63 (auto/); ko2 02:24 Pulse 106 MON; Pulse Ox 88% ; ko2 02:39 Pulse 106 MON; Pulse Ox 88% ; ko2 02:39 BP 141 / 72 (auto/); ko2 02:40 Pulse 102 MON; Pulse Ox 89% ; ko2 02:54 BP 110 / 55 (auto/); ko2 05:02 BP 133 / 60; Pulse 85; Resp 18; Temp 98.1; Pulse Ox 92% on NC; Pain 0/10; ko2 08/02 23:42 Body Mass Index 25.25 (79.83 kg, 177.80 cm) estrella MDM: 08/02 23:52 Chest, 2 View (pa\E\lat) Ordered. EDMS 02 00:03 IV Saline Lock ordered. cs11 00:03 Albuterol-Ipratropium 1 neb Nebulizer every 20 minutes x3 ordered. cs11 00:03 Call Respiratory ordered. cs11 00:03 Call Respiratory ordered. cs11 00:03 Dexamethasone 8 mg IV at bolus once ordered. cs11 00:03 Call Respiratory complete. ml3 00:03 Call Respiratory complete. ml3 00:03 CBC with Diff Ordered. EDMS 00:03 MED Profile Ordered. EDMS 00:03 BNP Ordered. EDMS 00:03 -Arterial Blood Gas Ordered. EDMS 00:08 Financial registration complete. pm4 00:54 [place] [place] was [place] into [employer] and attached to record. pm4 01:52 CBC with Diff Reviewed. cs11 01:52 MED Profile Reviewed. cs11 01:52 BNP Reviewed. cs11 01:52 -Arterial Blood Gas Reviewed. cs11 04:05 BED REQUEST+ADM ordered. EDMS 04:34 ELECTROCARDIOGRAM ADULT ordered. EDMS 04:35 C REACTIVE PROTEIN QUANTITATIV Ordered. EDMS 04:35 COMPLETE BLOOD COUNT Ordered. EDMS 04:35 BASIC METABOLIC PROFILE Ordered. EDMS 04:35 MAGNESIUM LEVEL Ordered. EDMS 04:35 RESPIRATORY PANEL Ordered. EDMS 04:35 BLOOD CULTURES Ordered. EDMS 04:35 SPUTUM CULTURE AND GRAM STAIN Ordered. EDMS 04:35 MRSA SCREEN Ordered. EDMS 04:37 PHYSICAL THERAPY EVAL ONLY ordered. EDMS 04:39 Admission / Observation Status ordered. EDMS 04:39 LOW FAT LOW CHOLESTEROL DIET ordered. EDMS 12:49 T-Sheet-- Draft Copy was scanned into [employer] and attached to record. gb 02 12:24 PCR was scanned into [employer] and attached to record. gb Administered Medications: 08/03 00:22 Drug: Dexamethasone 8 mg [dexamethasone 4 mg/mL injection solution] Route: IV; Rate: ko2 bolus; Site: left antecubital; 00:25 Drug: Albuterol-Ipratropium 1 neb [ipratropium-albuterol 0.5 mg-3 mg(2.5 mg base)/3 mL jh6 nebulization soln (1 neb)] Route: Nebulizer; 00:54 Drug: Albuterol-Ipratropium 1 neb [ipratropium-albuterol 0.5 mg-3 mg(2.5 mg base)/3 mL jh6 nebulization soln (1 neb)] Route: Nebulizer; 01:17 Drug: Albuterol-Ipratropium 1 neb [ipratropium-albuterol 0.5 mg-3 mg(2.5 mg base)/3 mL jh6 nebulization soln (1 neb)] Route: Nebulizer; Signatures: Dispatcher CurbStand EDMS Kelly Salas, Reg Reg gb Irvin Greenberg, Aircraft Electrician Unit ml3 Ivone Dickerson, RN RN [phone] Hunter Palacio DO DO cs11 Inga Collier RN RN ko2 Sean Guzman, Reg Reg pm4 Nito Danielle jh6 The chart was reviewed and I authenticate all verbal orders and agree with the evaluation and treatment provided.Attachments: 00:54 [facility] [place] pm4 12:49 T-Sheet-- Draft Copy gb Chart Complete MTDD
--- NOTE | 2016-08-05 06:39 | EDDOCDS ---
Nurse's Notes [facility] Name: Shahram Arthur Age: 75 yrs Sex: Male : 1940 Arrival Date: 08/02/2016 Time: 23:28 Bed 9 Private MD: Diagnosis: Chronic obstructive pulmonary disease with (acute) exacerbation Presentation: 08/02 23:48 Presenting complaint: Patient states: Increased SOB since Thursday so called EMS. Adult ko2 Sepsis Screening: The patient does not have new or worsening altered mentation. Patient's respiratory rate is less than 22. Systolic blood pressure is greater than 100. Patient has a qSOFA score of 0- Negative Sepsis Screen. Suicide/Homicide risk assessment- the patient denies having any suicidal and/or homicidal ideations and does not present with any other emotional, behavioral or mental health complaints. 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 Transition of care: patient was not received from another setting of care. Care prior to arrival: See EMS report. Medications administered prior to arrival: Albuterol Neb X2 , Atrovent and Solumedrol 125mg administered by EMS. 23:48 Acuity: PASCUAL Level 3 ko2 23:48 Method Of Arrival: Ambulance ko2 Triage Assessment: 23:51 General: Appears in no apparent distress. Pain: Denies pain. The patient is triaged at ko2 the bedside. See Assessment in Nurses Notes section of ED record. Neurological: Level of Consciousness is awake, alert. Cardiovascular: Heart tones S1 S2 present Rhythm is regular. Respiratory: Onset: The symptoms/episode began/occurred gradually, Airway is patent Respiratory effort is even, unlabored, Breath sounds are diminished bilaterally. GI: Abdomen is non- distended. Derm: Skin is normal. Historical: - Allergies: No known drug Allergies; - Home Meds: 1. amlodipine 5 mg Oral tab 1 tab once daily 2. aspirin 325 mg Oral TbEC 1 tab once daily 3. citalopram 20 mg Oral tab 1 tab once daily 4. finasteride 5 mg oral tab 1 tab once daily 5. flunisolide 2 spray daily 6. lisinopril 20 mg Oral tab 1 tab once daily 7. simvastatin 40 mg Oral tab 1 tab every other day 8. Spiriva with HandiHaler 18 mcg Inhl CpDv 1 cap once daily 9. symbicort 2 puff twice a day 10. ventalin 1 spray daily - PMHx: COPD; CVA; Depression; Hypertension; hyperlipidemia; - PSHx: none; - Social history: Smoking status: Patient states former smoker of tobacco. No barriers to communication noted, The patient speaks fluent Slovenian, Speaks appropriately for age. - Family history: Not pertinent. - : The pt / caregiver states he / she is not on anticoagulants. Home medication list is obtained from the patient. - Exposure Risk Screening:: None identified. Screenin/05 00:26 Screening information is obtained from the patient. Fall risk: No risks identified. ko2 Assistance ADL's: requires no assistance with activities of daily living. Abuse/DV Screen: The patient / caregiver reports he/she is: not in a situation that causes fear, pain or injury. Nutritional screening: No deficits noted. Advance Directives: Currently, there is no health care proxy. There is no active DNR order. There is no living will. There is no Power of Director Custom. 00:27 home support is adequate. ko2 Assessment: 08/02 23:52 General: See triage assessment. ko2 08/03 01:08 General: Appears in no apparent distress, comfortable, Behavior is appropriate for age, ko2 cooperative. Pain: Denies pain. Neurological: Level of Consciousness is awake, alert. Cardiovascular: Rhythm is regular. Respiratory: Airway is patent Respiratory effort is even, unlabored. Derm: Skin is normal. 02:00 General: Appears in no apparent distress, comfortable, Behavior is appropriate for age, ko2 cooperative. Pain: Denies pain. Neurological: Level of Consciousness is awake, alert. Respiratory: Airway is patent Respiratory effort is even, unlabored. Derm: Skin is normal. 03:06 General: Appears comfortable, Behavior is cooperative. Pain: Denies pain. Neurological: ko2 Level of Consciousness is awake, alert. Respiratory: Airway is patent Respiratory effort is even, unlabored. Derm: Skin is pink, warm & dry. 04:18 General: Appears in no apparent distress, comfortable, Behavior is appropriate for age, ko2 cooperative. Neurological: Level of Consciousness is awake, alert. Respiratory: Airway is patent Respiratory effort is even, unlabored. Derm: Skin is normal. 05:01 General: Appears in no apparent distress, comfortable, Behavior is appropriate for age, ko2 cooperative. Neurological: Level of Consciousness is awake, alert. Respiratory: Airway is patent Respiratory effort is even, unlabored. Derm: Skin is normal. Vital Signs: 08/02 23:39 BP 136 / 66 (auto/); 23:42 BP 136 / 66; Pulse 76; Resp 20; Temp 98.7(TE); Pulse Ox 92% on R/A; Weight 79.83 kg estrella (R); Height 5 ft. 10 in. (177.80 cm) (R); Pain 0/10; 23:42 Pulse 76 MON; Pulse Ox 93% ; ko2 23:53 Pulse 68 MON; Pulse Ox 92% ; ko2 23:54 BP 127 / 55 (auto/); ko2 08/03 00:07 Pulse 70 MON; Pulse Ox 92% ; ko2 00:09 BP 120 / 58 (auto/); ko2 00:24 BP 144 / 63 (auto/); ko2 00:24 Pulse 78 MON; Pulse Ox 90% ; ko2 00:44 Pulse 76 MON; Pulse Ox 90% ; ko2 00:54 BP 132 / 63 (auto/); ko2 01:39 BP 141 / 70 (auto/); ko2 01:42 Pulse 92 MON; Pulse Ox 89% ; ko2 01:52 Pulse 98 MON; Pulse Ox 87% ; ko2 01:54 BP 122 / 69 (auto/); ko2 02:09 BP 136 / 76 (auto/); ko2 02:09 Pulse 106 MON; Pulse Ox 89% ; ko2 02:24 BP 131 / 63 (auto/); ko2 02:24 Pulse 106 MON; Pulse Ox 88% ; ko2 02:39 Pulse 106 MON; Pulse Ox 88% ; ko2 02:39 BP 141 / 72 (auto/); ko2 02:40 Pulse 102 MON; Pulse Ox 89% ; ko2 02:54 BP 110 / 55 (auto/); ko2 05:02 BP 133 / 60; Pulse 85; Resp 18; Temp 98.1; Pulse Ox 92% on NC; Pain 0/10; ko2 08/02 23:42 Body Mass Index 25.25 (79.83 kg, 177.80 cm) estrella Vitals: 00:26 Log In Time N/A - ambulance arrival. ko2 ED Course: 08/02 23:29 Patient visited by Irvin Greenberg, Catering Assistant. ml3 23:29 Patient moved to Waiting ml3 23:38 Inga Collier,RN is Primary Nurse. ml3 23:38 Hunter Palacio DO is Attending Physician. cs11 23:38 Patient visited by Hunter Palacio DO. cs11 23:38 Patient moved to 9 ml3 23:42 Patient visited by Shellie Zhu PCA. estrella 23:42 Pt greeted and oriented to ED. Patient advised of names of staff involved in care, estrella location of call mccann, wait times and NPO status. Patient has correct armband on for positive identification. Placed in gown. Bed in low position. Call light in reach. Side rails up X2. food and beverage operations manager on. Pulse ox on. NIBP on. 23:49 Triage Initiated ko2 23:53 Maintain field IV. Dressing intact. Good blood return noted. Site clean & dry. Gauge & ko2 site: 18 gauge left AC. 08/03 00:22 Patient visited by Inga Collier RN. ko2 00:23 CBC with Diff Sent. ko2 00:23 MED Profile Sent. ko2 00:23 BNP Sent. ko2 00:27 The patient / caregiver is instructed regarding the plan of care and ED course. ko2 00:33 -Arterial Blood Gas Sent. jh6 00:54 [facility] Payment Agreement was scanned into [employer] and attached to record. pm4 01:08 Patient visited by Inga Collier RN. ko2 02:09 Patient visited by Inga Collier,MARCIA. ko2 03:06 Patient visited by Inga Collier RN. ko2 04:03 Patient visited by Inga Collier,MARCIA. ko2 04:04 Jenny Vicente is Hospitalizing Provider. cs11 05:01 No procedures done that require assistance. ko2 12:49 T-Sheet-- Draft Copy was scanned into [employer] and attached to record. gb 08/04 12:24 PCR was scanned into [employer] and attached to record. gb Administered Medications: 08/03 00:22 Drug: Dexamethasone 8 mg [dexamethasone 4 mg/mL injection solution] Route: IV; Rate: ko2 bolus; Site: left antecubital; 00:25 Drug: Albuterol-Ipratropium 1 neb [ipratropium-albuterol 0.5 mg-3 mg(2.5 mg base)/3 mL 6 nebulization soln (1 neb)] Route: Nebulizer; 00:54 Drug: Albuterol-Ipratropium 1 neb [ipratropium-albuterol 0.5 mg-3 mg(2.5 mg base)/3 mL 6 nebulization soln (1 neb)] Route: Nebulizer; 01:17 Drug: Albuterol-Ipratropium 1 neb [ipratropium-albuterol 0.5 mg-3 mg(2.5 mg base)/3 mL 6 nebulization soln (1 neb)] Route: Nebulizer; RT: 00:25 Initial Med Neb Given as ordered Patient was instructed and evaluated on procedure jh6 Patient tolerated procedure well without adverse effect. Respiratory: Airway is patent Respiratory effort is even, unlabored, Respiratory pattern is regular symmetrical, Breath sounds are diminished in left posterior upper lobe, right posterior upper lobe, left posterior lower lobe, right posterior middle lobe and right posterior lower lobe. 00:33 ABG's drawn from left radial artery pressure held for 5 minutes no bleeding noted jh6 pressure bandage applied specimen sent pt. tolerated well. Respiratory: Airway is patent Respiratory effort is even, unlabored, Respiratory pattern is regular symmetrical, Breath sounds are clear in left posterior upper lobe, right posterior upper lobe, left posterior lower lobe, right posterior middle lobe and right posterior lower lobe Breath sounds are diminished in left posterior upper lobe, right posterior upper lobe, left posterior lower lobe, right posterior middle lobe and right posterior lower lobe. 00:54 Subsequent Med Neb Given as ordered Patient was reinforced on procedure Patient jh6 tolerated procedure well without adverse effect. Respiratory: Airway is patent Respiratory effort is even, unlabored, Respiratory pattern is regular symmetrical, Breath sounds with crackles in left posterior lower lobe and right posterior lower lobe Breath sounds are diminished in left posterior upper lobe, right posterior upper lobe, left posterior lower lobe, right posterior middle lobe and right posterior lower lobe. 01:02 Respiratory: Airway is patent Respiratory effort is even, unlabored, Respiratory jh6 pattern is regular symmetrical, Breath sounds with crackles in left posterior lower lobe and right posterior lower lobe Breath sounds are diminished in left posterior upper lobe, right posterior upper lobe, left posterior lower lobe, right posterior middle lobe and right posterior lower lobe. 01:18 Respiratory: Airway is patent Respiratory effort is even, unlabored, Respiratory jh6 pattern is regular symmetrical, Breath sounds with crackles in left posterior lower lobe and right posterior lower lobe Breath sounds are diminished in left posterior upper lobe, right posterior upper lobe, left posterior lower lobe, right posterior middle lobe and right posterior lower lobe. 01:27 Respiratory: Airway is patent Respiratory effort is even, unlabored, Respiratory jh6 pattern is regular symmetrical, Breath sounds with crackles in left posterior lower lobe, right posterior middle lobe and right posterior lower lobe Breath sounds are diminished in left posterior upper lobe, right posterior upper lobe, left posterior lower lobe, right posterior middle lobe and right posterior lower lobe. Order Results: Lab Order: CBC with Diff; SPEC'M 08/03/16 00:19 Test: WHITE BLOOD COUNT; Value: 7.4; Range: 4.0-10.0; Units: K/mm3; Status: F Test: RED BLOOD COUNT; Value: 4.09; Range: 4.30-6.10; Abnormal: Below low normal; Units: M/mm3; Status: F Test: HEMOGLOBIN; Value: 12.4; Range: 14.0-18.0; Abnormal: Below low normal; Units: g/dl; Status: F Test: HEMATOCRIT; Value: 38.0; Range: 42.0-52.0; Abnormal: Below low normal; Units: %; Status: F Test: MEAN CORPUSCULAR VOLUME; Value: 93.0; Range: 80.0-96.0; Units: fl; Status: F Test: MEAN CORPUSCULAR HEMOGLOBIN; Value: 30.4; Range: 27.0-33.0; Units: pg; Status: F Test: MEAN CORPUSCULAR HGB CONC; Value: 32.7; Range: 32.0-36.5; Units: g/dl; Status: F Test: RED CELL DISTRIBUTION WIDTH; Value: 14.4; Range: 11.5-14.5; Units: %; Status: F Test: PLATELET COUNT, AUTOMATED; Value: 276; Range: 150-450; Units: k/mm3; Status: F Test: NEUTROPHILS %; Value: 71.6; Range: 36.0-66.0; Abnormal: Above high normal; Units: %; Status: F Test: LYMPH %; Value: 14.5; Range: 24.0-44.0; Abnormal: Below low normal; Units: %; Status: F Test: MONO %; Value: 6.7; Range: 0.0-5.0; Abnormal: Above high normal; Units: %; Status: F Test: EOS %; Value: 4.3; Range: 0.0-3.0; Abnormal: Above high normal; Units: %; Status: F Test: BASO %; Value: 0.3; Range: 0.0-1.0; Units: %; Status: F Test: LARGE UNSTAINED CELL %; Value: 2.7; Range: 0.0-4.0; Units: %; Status: F Test: NEUTROPHILS #; Value: 5.3; Range: 1.8-7.7; Units: K/mm3; Status: F Test: LYMPH #; Value: 1.3; Range: 1.5-4.5; Abnormal: Below low normal; Units: K/mm3; Status: F Test: MONO #; Value: 0.5; Range: 0.0-0.8; Units: K/mm3; Status: F Test: EOS #; Value: 0.3; Range: 0.0-0.50; Units: K/mm3; Status: F Test: BASO #; Value: 0.0; Range: 0.0-0.2; Units: K/mm3; Status: F Test: LARGE UNSTAINED CELL #; Value: 0.2; Range: 0.0-0.4; Units: K/mm3; Status: F Lab Order: [facility]; [facility]' 08/03/16 00:19 Test: GLUCOSE, FASTING; Value: 111; Range: 83-110; Abnormal: Above high normal; Units: MG/DL; Status: F Test: BLOOD UREA NITROGEN; Value: 30; Range: 7-18; Abnormal: Above high normal; Units: MG/DL; Status: F Test: CREATININE FOR GFR; Value: 1.57; Range: 0.70-1.30; Abnormal: Above high normal; Units: MG/DL; Status: F Test: GLOMERULAR FILTRATION RATE; Value: 46.1; Range: >42; Status: F Test: SODIUM LEVEL; Value: 138; Range: 136-145; Units: MEQ/L; Status: F Test: POTASSIUM SERUM; Value: 3.9; Range: 3.5-5.1; Units: MEQ/L; Status: F Test: CHLORIDE LEVEL; Value: 104; Range: 98-107; Units: MEQ/L; Status: F Test: CARBON DIOXIDE LEVEL; Value: 25; Range: 21-32; Units: MEQ/L; Status: F Test: ANION GAP; Value: 9; Range: 8-16; Units: MEQ/L; Status: F Test: CALCIUM LEVEL; Value: 8.2; Range: 8.8-10.2; Abnormal: Below low normal; Units: MG/DL; Status: F Test Note: ; Units are mL/min/1.73 m2 Chronic Kidney Disease Staging per NKF: Stage I & II GFR >=60 Normal to Mildly Decreased Stage III GFR 30-59 Moderately Decreased Stage IV GFR 15-29 Severely Decreased Stage V GFR <15 Very Little GFR Left ESRD GFR <15 on DISH MACHINE OPERATOR Lab Order: BNP; SPEC'M 08/03/16 00:19 Test: BRAIN NATRIURETIC PEPTIDE; Value: 226; Range: <100; Abnormal: Above high normal; Units: PG/ML; Status: F Lab Order: -Arterial Blood Gas; SPEC'M 08/03/16 00:33 Test: ABG pH (ARTERIAL); Value: 7.388; Range: 7.350-7.450; Units: UNITS; Status: F Test: ABG PARTIAL PRESSURE CO2; Value: 32.4; Range: 35.0-45.0; Abnormal: Below low normal; Units: mmHg; Status: F Test: ABG PARTIAL PRESSURE O2; Value: 61.8; Range: 75.0-100.0; Abnormal: Below low normal; Units: mmHg; Status: F Test: ABG TOTAL CO2; Value: 20.1; Range: 23.0-31.0; Abnormal: Below low normal; Units: MEQ/L; Status: F Test: ABG HCO3; Value: 19.1; Range: 22.0-26.0; Abnormal: Below low normal; Units: MEQ/L; Status: F Test: ABG BASE EXCESS; Value: -4.9; Range: -2.0-2.0; Abnormal: Below low normal; Status: F Test: ABG STANDARD HCO3; Value: 20.3; Range: 22.0-26.0; Abnormal: Below low normal; Units: MEQ/L; Status: F Test: ABG O2 SATURATION; Value: 91.7; Range: 95.0-99.0; Abnormal: Below low normal; Units: %; Status: F Test: ABG DEVICE; Value: NASAL RYAN; Status: F Outcome: 04:04 Decision to Hospitalize by Provider. cs11 05:17 Discharge Assessment: Patient awake, alert and oriented x 3. No cognitive and/or ko2 functional deficits noted. Patient verbalized understanding of disposition instructions. patient administered narcotics - no. The following High Risk Discharge criteria are identified: None. Admitted to Floor accompanied by tech, via stretcher, with oxygen. Condition: stable. Discharge instructions given to patient. No special radiology studies were completed. Property sent home with patient. 05:17 Admission hand-off: Report Faxed Fax receipt verified by MARCIA Aguilar 5 Jj. ko2 05:38 Patient left the ED. ko2 Signatures: Kelly Salas, Reg Reg gb Irvin Greenberg, Catering Assistant Unit ml3 Shellie Zhu, REGIONAL PROPERTY MANAGER REGIONAL PROPERTY MANAGER Nito Beatty jh6 Hunter Palacio, DO cs11 Inga Collier RN RN ko2 Sean Guzman, Reg Reg pm4 Chart Complete MTDD
[2016-08-05] MEDS ORDERED: LEVALBUTEROL 1.25 MG/0.5 ML CONCENTRATE NEB INH PRN (06:45)
[2016-08-05] MEDS ORDERED: LEVALBUTEROL 1.25 MG/0.5 ML CONCENTRATE NEB INH ONE (06:45)
--- NOTE | 2016-08-05 06:50 | IPN ---
DATE: 08/05/2016 Patient seen and examined at bedside. Chart has been reviewed. This morning, patient states that he had no issues overnight as he slept but when he woke up this morning, he had copious amounts of brown sputum with coughing fits and decreased ability to breathe requiring supplemental oxygen. He currently requires 2 liters and saturating around 91-95%. Patient despite receiving nebulizers continues to have respiratory distress and continues to have increased wheezing. VITALS: Temperature 97.5, pulse 96, respiratory rate 18, blood pressure 165/80, 95% on 2 liters nasal cannula. Generally, patient is awake, alert, oriented times three. He has mild respiratory distress. Able to complete full sentences but using accessory muscles. Lungs are diminished. Expiratory wheezing bilaterally. Positive wheezing. Heart: S1, S2, sinus. Abdomen: Soft, nontender, nondistended. Extremities: No pitting edema. LABORATORY DATA 08/04: CBC, metabolic panel have been reviewed notable for creatinine 1.7. ASSESSMENT AND PLAN: This is a 75-year-old male presented with shortness of breath, found to have respiratory syncytial virus (RSV), nasopharynx, chest x- ray negative. Treating for chronic obstructive pulmonary disease (COPD) exacerbation. CURRENT ISSUES: 1. Acute respiratory distress requiring supplemental oxygen currently at 95% 2 liters nasal cannula. Patient is being treated for chronic obstructive pulmonary disease (COPD) exacerbation, IV Solu-Medrol, empiric antibiotics, supplemental oxygen, nebulizer treatment. 2. Chronic obstructive pulmonary disease (COPD) exacerbation secondary to respiratory syncytial virus (RSV). Continue supportive care. 3. Hypertension, Norvasc, lisinopril. 4. Benign prostatic hypertrophy (BPH), on Proscar. 5. Chronic kidney disease at baseline. 6. Deep venous thrombosis (DVT) prophylaxis on subcutaneous Heparin. DISPOSITION: Patient is actively wheezing, unable to be off IV Solu-Medrol at this time due to persistent decrease in air entry and respiratory distress, therefore, will continue with the same. Possible discharge in 2-3 days. MTDD
[2016-08-05 07:05] LABS: MEAN CORPUSCULAR HEMOGLOBIN 30.6 pg (27.0-33.0); MEAN CORPUSCULAR HGB CONC 33.3 g/dl (32.0-36.5); RED CELL DISTRIBUTION WIDTH 14.2 % (11.5-14.5); WHITE BLOOD COUNT 18.7 K/mm3 (4.0-10.0)
[2016-08-05] MEDS: SYMBICORT 160/4.5MCG INHALER 6GM INH SCH ×2 (07:18→20:32)
[2016-08-05] MEDS: TIOTROPIUM INHALER/CAPSULE (SPIRIVA) INH SCH (07:19)
[2016-08-05 07:20] LABS: CALCIUM LEVEL 8.7 MG/DL (8.8-10.2); CREATININE FOR GFR 1.59 MG/DL (0.70-1.30); GLOMERULAR FILTRATION RATE 45.4 (>42); MAGNESIUM LEVEL 2.1 MG/DL (1.8-2.4); POTASSIUM SERUM 4.4 MEQ/L (3.5-5.1)
[2016-08-05] MEDS: LEVALBUTEROL 1.25 MG/0.5 ML CONCENTRATE NEB INH SCH ×5 (08:00→23:40)
--- NOTE | 2016-08-05 08:09 | REP ---
Portable chest, 07:30 a.m., 08/05/2016: Comparisons are PA and lateral chest 01/28, 11/15/2016, PA and lateral chest 07/08/[address] of 01/09/2011. There are no acute infiltrates or pleural effusions. There are no masses. Cardiac size is normal. The central jeremías are chronically enlarged, unchanged from all prior studies. On the prior chest CT, there are no hilar masses. The hilar enlargement is due to enlarged central pulmonary arteries, compatible with pulmonary hypertension. Mediastinum and bony thorax are unremarkable. Impression: No acute cardiopulmonary findings. Chronically enlarged central jeremías as described, compatible with pulmonary hypertension. Signed by Homero Esparza MD 08/05/2016 08:00 A
[2016-08-05] MEDS: methylPREDNISolone INJ 125 MG/2 ML VIAL (J2930) IV SCH ×2 (08:24→18:01)
[2016-08-05] MEDS: cefTRIAXone SOD 1 GM in D5W MINI-BAG PLUS 50 ML IV SCH (08:24)
[2016-08-05] MEDS: SENOKOT S TAB PO SCH ×2 (08:25→20:41)
[2016-08-05] MEDS: PANTOPRAZOLE 40MG TAB (PROTONIX) PO SCH (08:25)
[2016-08-05] MEDS: guaiFENesin ER 600 MG TAB PO SCH ×2 (08:25→20:42)
[2016-08-05] MEDS: LISINOPRIL 20 MG TAB PO SCH (08:25)
[2016-08-05] MEDS: ASPIRIN 81 MG CHEW TABLET PO SCH (08:25)
[2016-08-05] MEDS: FLUTICASONE PROP 0.05% NASAL SPRAY 16 GM (FLONASE) SCH ×2 (08:26→20:44)
[2016-08-05] MEDS: amLODIPine 5 MG TAB PO SCH (09:00)
[2016-08-05] MEDS ORDERED: INFLUENZA VIRUS VACCINE HIGH DOSE 0.5 ML SYRINGE (90662) IM ONE (09:00)
[2016-08-05 14:00] VITALS: BP 104/57
[2016-08-05] MEDS: FINASTERIDE 5 MG TAB PO SCH (20:41)
[2016-08-05] MEDS: CitaloPRAM (CeleXA) 10 MG TABLET PO SCH (20:42)
[2016-08-05] MEDS: ATORVASTATIN 20 MG TAB PO SCH (20:42)
[2016-08-05 22:00] VITALS: BP 140/70
[2016-08-06] MEDS: methylPREDNISolone INJ 125 MG/2 ML VIAL (J2930) IV SCH ×3 (00:15→16:46)
[2016-08-06] MEDS: LEVALBUTEROL 1.25 MG/0.5 ML CONCENTRATE NEB INH SCH ×5 (03:56→20:00)
[2016-08-06 03:57] VITALS: O2SAT 94
[2016-08-06] MEDS: HEPARIN SOD (PORCINE) 5000 UNITS/ML VIAL SC SCH ×2 (05:43→18:11)
[2016-08-06 06:00] VITALS: BP 143/72
[2016-08-06] MEDS ORDERED: FUROSEMIDE 40 MG/4 ML VIAL (J1940) IV ONE (06:45)
[2016-08-06 06:50] LABS: MEAN CORPUSCULAR HEMOGLOBIN 30.3 pg (27.0-33.0); MEAN CORPUSCULAR HGB CONC 33.1 g/dl (32.0-36.5); MEAN CORPUSCULAR VOLUME 91.5 fl (80.0-96.0); RED CELL DISTRIBUTION WIDTH 14.3 % (11.5-14.5); WHITE BLOOD COUNT 17.2 K/mm3 (4.0-10.0)
[2016-08-06 07:02] LABS: CALCIUM LEVEL 8.8 MG/DL (8.8-10.2); CREATININE FOR GFR 1.76 MG/DL (0.70-1.30); GLOMERULAR FILTRATION RATE 40.4 (>42); MAGNESIUM LEVEL 2.3 MG/DL (1.8-2.4); POTASSIUM SERUM 4.2 MEQ/L (3.5-5.1)
[2016-08-06] MEDS: TIOTROPIUM INHALER/CAPSULE (SPIRIVA) INH SCH (07:14)
[2016-08-06] MEDS: SYMBICORT 160/4.5MCG INHALER 6GM INH SCH ×2 (07:14→20:49)
--- NOTE | 2016-08-06 07:51 | IPN ---
DATE: 08/06/2016 Patient seen and examined at bedside. Chart has been reviewed. Patient still complains of productive cough, brownish sputum to yellow-white, very sticky. No fever or chills. Still with dyspnea on exertion when going from bedroom to bathroom. When ambulated on the floor, he was desaturated to 88% on room air. No chest pain or pressure. Temperature 97.2, pulse 78, respiratory 17, blood pressure 143/72, 93% on room air. Generally, awake, alert, oriented times three, answering questions appropriately. Patient has no use of respiratory accessory muscles. No cyanosis. Able to complete full sentences. Lungs: Diminished bilateral expiratory wheezing. Air entry is equal. Heart: S1, S2. Sinus rhythm. Abdomen: Obese, soft, nontender. Reducible umbilical hernia. Extremities have no pitting edema. LABORATORY DATA: White count 17, hemoglobin 12, hematocrit 36, platelet count 300. Sodium 137, potassium 4.2, chloride 103, bicarbonate 23, BUN 46, creatinine 1.76, glucose 128. ASSESSMENT AND PLAN: This 75-year-old male presented with shortness of breath, found to have respiratory syncytial virus (RSV) in the nasopharynx. Chest x-ray negative. Being treated for chronic obstructive pulmonary disease (COPD) exacerbation. 1. Acute hypoxic respiratory failure requiring supplemental oxygen. Dropped down to 88% on room air with ambulation. Currently IV Solu-Medrol, empiric antibiotics, supplemental oxygen, nebulizer treatment. 2. Chronic obstructive pulmonary disease (COPD) exacerbation secondary to respiratory syncytial virus (RSV), continue fully supportive care. If not significant improvement, will discuss with pulmonary coding and reimbursement specialist. 3. Hypertension on Norvasc and lisinopril. 4. Benign prostatic hypertension (BPH) on Proscar. 5. Chronic kidney disease at baseline. 6. Deep vein thrombosis (DVT) prophylaxis, subcutaneous heparin. MTDD
[2016-08-06] MEDS: amLODIPine 5 MG TAB PO SCH (09:04)
[2016-08-06] MEDS: cefTRIAXone SOD 1 GM in D5W MINI-BAG PLUS 50 ML IV SCH (09:04)
[2016-08-06] MEDS: PANTOPRAZOLE 40MG TAB (PROTONIX) PO SCH (09:05)
[2016-08-06] MEDS: guaiFENesin ER 600 MG TAB PO SCH ×2 (09:05→20:24)
[2016-08-06] MEDS: SENOKOT S TAB PO SCH ×2 (09:05→20:23)
[2016-08-06] MEDS: ASPIRIN 81 MG CHEW TABLET PO SCH (09:06)
[2016-08-06] MEDS: LISINOPRIL 20 MG TAB PO SCH (09:06)
[2016-08-06] MEDS: AZITHROMYCIN 250 MG TAB PO SCH (09:06)
[2016-08-06] MEDS: FLUTICASONE PROP 0.05% NASAL SPRAY 16 GM (FLONASE) SCH ×2 (09:07→20:26)
[2016-08-06 14:00] VITALS: BP 133/70
[2016-08-06] MEDS: CitaloPRAM (CeleXA) 10 MG TABLET PO SCH (20:24)
[2016-08-06] MEDS: ATORVASTATIN 20 MG TAB PO SCH (20:25)
[2016-08-06] MEDS: FINASTERIDE 5 MG TAB PO SCH (20:26)
[2016-08-06 22:00] VITALS: BP 129/61
[2016-08-07] MEDS: LEVALBUTEROL 1.25 MG/0.5 ML CONCENTRATE NEB INH SCH ×6 (00:14→20:00)
[2016-08-07] MEDS: methylPREDNISolone INJ 125 MG/2 ML VIAL (J2930) IV SCH ×3 (00:28→18:22)
[2016-08-07] MEDS: HEPARIN SOD (PORCINE) 5000 UNITS/ML VIAL SC SCH ×2 (05:12→18:22)
[2016-08-07 06:00] VITALS: BP 149/67
[2016-08-07 06:40] LABS: MEAN CORPUSCULAR HEMOGLOBIN 30.3 pg (27.0-33.0); MEAN CORPUSCULAR HGB CONC 32.9 g/dl (32.0-36.5); MEAN CORPUSCULAR VOLUME 92.1 fl (80.0-96.0); RED CELL DISTRIBUTION WIDTH 14.4 % (11.5-14.5); WHITE BLOOD COUNT 14.1 K/mm3 (4.0-10.0)
[2016-08-07 06:59] LABS: CALCIUM LEVEL 8.5 MG/DL (8.8-10.2); CREATININE FOR GFR 2.22 MG/DL (0.70-1.30); GLOMERULAR FILTRATION RATE 30.9 (>42); MAGNESIUM LEVEL 2.2 MG/DL (1.8-2.4)
[2016-08-07] MEDS: SYMBICORT 160/4.5MCG INHALER 6GM INH SCH ×2 (07:28→19:37)
[2016-08-07] MEDS: TIOTROPIUM INHALER/CAPSULE (SPIRIVA) INH SCH (07:28)
--- NOTE | 2016-08-07 08:51 | IPN ---
DATE: 08/07/2016 The patient is seen and examined at the bedside. The chart has been reviewed. This morning, he states that when he woke up he was having copious amounts of yellow-white sputum. His breathing is improved. He is saturating 92% to 93%, still with some dyspnea on exertion when he ambulates. No other issues per nursing. Temperature 96.8, pulse 83, respiratory rate 17, blood pressure 149/67 and 92% on room air. Generally, the patient is awake, alert, oriented times three, answering questions appropriately. Lungs have diminished breath sounds and prolonged expiration. Faint expiratory wheezing, improved from yesterday. Air entry is equal. Heart: S1, S2. Sinus rhythm. Abdomen is soft, nontender, nondistended. Extremities: Have no pitting edema. LABORATORY DATA: White count 14, hemoglobin 12, hematocrit 36 and platelet count 308. Sodium 135, potassium 4, chloride 101, bicarbonate 25, BUN 55, creatinine 2.22, and glucose of 131. ASSESSMENT AND PLAN: 75-year-old male with history of chronic kidney disease, chronic obstructive pulmonary disease (COPD) on home oxygen, who presents with shortness of breath and found to have respiratory syncytial virus (RSV) positive , currently being treated for COPD. The patient has had desaturations on room air with ambulation down to 88%. IMPRESSIONS: 1. COPD exacerbation secondary to RSV. Continue on full supportive care. Patient is currently on intravenous Solu-Medrol, inhaled steroids, his short acting and long acting beta agonist and antibiotics. Defer to tool grinder set up operator gear for any changes. 2. Acute on chronic renal failure stage III. Patient currently has acute kidney injury, therefore, will hold off on lisinopril and challenge with gentle hydration with 60 mL of normal saline per hour for 1 liter. Repeat metabolic panel at 2300. 3. Hyperlipidemia. Continue on Lipitor. 4. Benign prostatic hyperplasia (BPH), on Proscar. 5. Hypertension, on Norvasc. Will discontinue patient's CORETTA inhibitor due to recent increase in BUN and creatinine. MTDD
[2016-08-07] MEDS ORDERED: NS 1,000 ML IV SCH (09:00)
[2016-08-07] MEDS: cefTRIAXone SOD 1 GM in D5W MINI-BAG PLUS 50 ML IV SCH (09:39)
[2016-08-07] MEDS: FLUTICASONE PROP 0.05% NASAL SPRAY 16 GM (FLONASE) SCH ×2 (09:41→20:49)
[2016-08-07] MEDS: SENOKOT S TAB PO SCH ×2 (09:41→20:48)
[2016-08-07] MEDS: AZITHROMYCIN 250 MG TAB PO SCH (09:41)
[2016-08-07] MEDS: ASPIRIN 81 MG CHEW TABLET PO SCH (09:41)
[2016-08-07] MEDS: PANTOPRAZOLE 40MG TAB (PROTONIX) PO SCH (09:41)
[2016-08-07] MEDS: amLODIPine 5 MG TAB PO SCH (09:41)
[2016-08-07] MEDS: guaiFENesin ER 600 MG TAB PO SCH ×2 (09:41→20:48)
[2016-08-07] MEDS ORDERED: PRED10PA2 PO (13:35)
[2016-08-07 14:00] VITALS: BP 134/71
--- NOTE | 2016-08-07 18:30 | CR ---
DATE OF CONSULTATION: 08/07/2016 REQUESTING PROVIDER: Dr. Ashlyn Muniz CONSULTING PHYSICIAN: Dr. Ryland Burger OUTPATIENT EXECUTIVE PRODUCER: Dr. No PRIMARY CARE PROVIDER: Dr. Vin Deras REASON FOR CONSULTATION: Wheezing, recurrent admission for chronic obstructive pulmonary disease (COPD). HISTORY OF PRESENT ILLNESS: Mr. 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 He reported that his progressive shortness of breath started 1 week prior to him being admitted. He admitted to productive cough with yellow sputum. No other significant complaints at that time. He was evaluated today and reported that his shortness of breath has significantly improved. He is currently on room air with good oxygen saturation. He denied any fever, chills, night sweats. No chest pain, pressure, palpitations. He denied any orthopnea or paroxysmal nocturnal dyspnea or lower extremity edema. Prior to hospitalization he denied any sick contacts. The patient is a former smoker but quit after his CVA in 2003. He had a previous admission for COPD exacerbation back in July 2015. Prior to that his last admission was March 2015. He follows with Dr. No as an outpatient, but is not clear on when was the last time he was seen by her. PAST MEDICAL HISTORY: 1. COPD. 2. Chronic kidney disease stage III. 3. Hypertension. 4. Dyslipidemia. 5. Benign prostatic hypertrophy. 6. Depression. 7. 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 PAST SURGICAL HISTORY: Bilateral cataracts, ring finger of right hand surgery. HOME MEDICATIONS: - Ventolin inhaler two puffs inhaled daily as needed - Symbicort 80-4.5 mcg two puffs inhaled twice daily - Spiriva HandiHaler one inhalation daily - prednisone taper - Norvasc 5 mg daily - aspirin 162 mg daily - Celexa 10 mg by mouth at bedtime - Proscar 5 mg by mouth at bedtime - flunisolide two sprays in each nares twice daily - simvastatin 40 mg by mouth every 2 days ALLERGIES: No known drug allergies. SOCIAL HISTORY: The patient is a former smoker, quit in 2003. At most he was smoking two packs per day and had been smoking for about 45 years. The patient reports that he drinks about 3-4 beers per week. No illicit drug use. He lives at home with his . There is one cat in the home. He denies any exposure to birds or farm animals. No sick contacts. He is a retired draftsman. FAMILY HISTORY: Brother had history of diabetes. He reports that his father was an alcoholic. No history of lung disease in the family. He has three daughters who are relatively healthy. REVIEW OF SYSTEMS: GENERAL: The patient denies any fever, chills, night sweats. No significant weight changes. No excessive fatigue. HEENT: No headache, lightheadedness or dizziness. No acute changes to vision or hearing. CARDIOVASCULAR: The patient denies any chest pain, chest pressure, palpitations , orthopnea, paroxysmal nocturnal dyspnea, chronic lower extremity edema. He does admit to shortness of breath which is improved. PULMONARY: Positive for shortness of breath. Positive for cough, with yellowish sputum. He also reports a history of a chronic cough since he stopped smoking. Positive for wheezing. No hemoptysis. GASTROINTESTINAL: No nausea, vomiting, diarrhea, constipation, abdominal pain, hematochezia or melena. GENITOURINARY: No change in urinary frequency. No dysuria or hematuria. MUSCULOSKELETAL: No unusual muscle or joint pains. HEMATOLOGIC: No excessive bleeding or bruising. ENDOCRINE: No history of diabetes or thyroid disorder. INTEGUMENT: No unusual rashes or skin lesions. NEUROLOGIC: No syncope. No paresthesias. History of CVA in 2003. PSYCHIATRIC: Positive history of depression which is stable. PHYSICAL EXAMINATION: VITAL SIGNS: Temperature 97.1, pulse 93, respiratory rate 17, blood pressure 134/71, pulse oximetry 93% on room air. GENERAL: The patient is alert and oriented times three. In no acute distress. He is speaking in full sentences without any respiratory distress. HEENT: Normocephalic, atraumatic. Extraocular muscles are intact. Pupils are equally round and reactive to light. No scleral icterus. Moist mucosa. NECK: Supple. No cervical lymphadenopathy. No jugular venous distension appreciated. CHEST: Symmetric with no use of accessory muscles. HEART: Normal S1, S2, regular rate and rhythm, I do not appreciate a murmur. LUNGS: Fair air movement bilaterally. Bilateral expiratory wheezing with prolonged expiration. No rales appreciated. ABDOMEN: Soft, nontender, nondistended. Bowel sounds are present. EXTREMITIES: +1 lower extremity edema. No cyanosis. Positive pedal pulses bilaterally. SKIN: Warm and dry. No rashes noted. Patient has mild bruising of the left forearm. NEUROLOGIC: No new focal deficits. Cranial nerves II-XII are grossly intact. The patient is moving all extremities. LABORATORY DATA: WBC 14.1, hemoglobin 12.1, hematocrit 36.8, platelet count 308, sodium 135, potassium 4.0, chloride 101, carbon dioxide 25, anion gap 9, BUN 55, creatinine 2.22, GFR 30.9, fasting glucose 131, calcium 8.5, magnesium 2.2. MICROBIOLOGY: Sputum culture was positive for moderate amount of yeast. Respiratory virus panel was positive for respiratory syncytial virus (RSV). Blood cultures show no growth after 72 hours. Methicillin-resistant Staphylococcus aureus (MRSA) screen was negative. IMAGING STUDIES: The patient had initial chest x-ray on 08/03/2016, which showed hyperinflation consistent with COPD, no acute disease. He had a repeat chest x-ray on 08/05/2016, which showed no acute cardiopulmonary findings, chronically enlarged central jeremías, due to enlarged central pulmonary arteries compatible with pulmonary hypertension. ASSESSMENT/PLAN: Mr. Arthur is a 75-year-old male with past medical history significant for COPD, CKD stage III, hypertension, dyslipidemia, depression, benign prostatic hypertrophy, CVA in 2003, who presented with progressive dyspnea and a productive cough, found to have COPD secondary to RSV, who has improved with supportive treatment which included steroids, antibiotics, Spiriva, Symbicort, and breathing treatment scheduled and as needed. 1. COPD exacerbation secondary to RSV. The patient appears to be improving. Continue with current management of steroids which can be tapered, Symbicort, Spiriva, and breathing treatments as needed. He may benefit from home nebulizer treatments. Antibiotics can be discontinued as this is more viral. Chest x-ray did not show any significant infiltrate or consolidation. The patient should ambulate to confirm oxygen requirements. 2. Abnormal chest x-ray. The patient is noted to have chronically enlarged central jeremías secondary to enlarged central pulmonary arteries compatible with pulmonary hypertension. This was also noted on prior chest CT without any significant hilar masses at that time. 3. Acute on chronic kidney disease, stage III. The patient is currently on intravenous fluids. Monitor for improvement in renal function. Electrolytes are stable. Monitor volume status while on fluids. 4. Hypertension. Blood pressure is currently stable. The patient is on Norvasc. His lisinopril has been discontinued secondary to acute kidney injury. 5. Dyslipidemia. The patient is on Lipitor daily. 6. Depression. The patient is on Celexa daily. 7. Benign prostatic hypertrophy. The patient is on Proscar daily. 8. History of CVA in 2003. Neurologically stable. The patient is on aspirin and statin therapy. 9. Deep venous thrombosis (DVT) prophylaxis. The patient is on heparin subcutaneous. 10. Code status. The patient reports that he is a FULL CODE. His is his healthcare proxy. Second healthcare proxy is his daughter. Thank you for the consultation and allowing us to participate in the care of Mr. Arthur. Will continue to follow along with you. My preceptor for this patient encounter was Dr. Ryland Burger. The preceptor was physically present in the room during the encounter and was fully available. As needed, all aspects of the patient interview, examination, medical decision making process, and medical care plan development were reviewed and approved by the preceptor. The preceptor is aware and concurs with the plan as stated in the body of this note and will attest to such by his/her cosignature. I, Ryland Burger, personally reviewed the history and physical as outlined above and agree with the assessment as outlined above. Patient will likely need prolonged taper of steroids due to bronchospasm from RSV virus. He should follow up with Dr. No as scheduled in early August. I personally examined and interviewed the patient. I discussed the plan with the resident which is reflected above. STEPHANE
[2016-08-07] MEDS: FINASTERIDE 5 MG TAB PO SCH (20:48)
[2016-08-07] MEDS: CitaloPRAM (CeleXA) 10 MG TABLET PO SCH (20:48)
[2016-08-07] MEDS: ATORVASTATIN 20 MG TAB PO SCH (20:49)
[2016-08-07 22:00] VITALS: BP 119/72
[2016-08-08] MEDS: LEVALBUTEROL 1.25 MG/0.5 ML CONCENTRATE NEB INH SCH ×4 (00:08→12:05)
[2016-08-08] MEDS: methylPREDNISolone INJ 125 MG/2 ML VIAL (J2930) IV SCH ×2 (00:30→09:37)
[2016-08-08] MEDS: HEPARIN SOD (PORCINE) 5000 UNITS/ML VIAL SC SCH (05:28)
[2016-08-08 06:00] VITALS: BP 155/72
[2016-08-08 06:49] LABS: MEAN CORPUSCULAR HEMOGLOBIN 30.7 pg (27.0-33.0); MEAN CORPUSCULAR HGB CONC 32.9 g/dl (32.0-36.5); MEAN CORPUSCULAR VOLUME 93.3 fl (80.0-96.0); RED CELL DISTRIBUTION WIDTH 14.3 % (11.5-14.5); WHITE BLOOD COUNT 12.2 K/mm3 (4.0-10.0)
[2016-08-08 07:25] LABS: CALCIUM LEVEL 8.4 MG/DL (8.8-10.2); CREATININE FOR GFR 2.04 MG/DL (0.70-1.30); GLOMERULAR FILTRATION RATE 34.1 (>42); MAGNESIUM LEVEL 2.4 MG/DL (1.8-2.4); POTASSIUM SERUM 4.5 MEQ/L (3.5-5.1)
[2016-08-08] MEDS: SYMBICORT 160/4.5MCG INHALER 6GM INH SCH (07:49)
[2016-08-08] MEDS: TIOTROPIUM INHALER/CAPSULE (SPIRIVA) INH SCH (07:49)
[2016-08-08 08:15] VITALS: BP 126/60
[2016-08-08] MEDS: AZITHROMYCIN 250 MG TAB PO SCH (09:33)
[2016-08-08] MEDS: PANTOPRAZOLE 40MG TAB (PROTONIX) PO SCH (09:34)
[2016-08-08] MEDS: SENOKOT S TAB PO SCH (09:34)
[2016-08-08] MEDS: ASPIRIN 81 MG CHEW TABLET PO SCH (09:34)
[2016-08-08 09:35] VITALS: BP 126/60
[2016-08-08] MEDS: guaiFENesin ER 600 MG TAB PO SCH (09:35)
[2016-08-08] MEDS: amLODIPine 5 MG TAB PO SCH (09:35)
[2016-08-08] MEDS: cefTRIAXone SOD 1 GM in D5W MINI-BAG PLUS 50 ML IV SCH (09:36)
[2016-08-08] MEDS: FLUTICASONE PROP 0.05% NASAL SPRAY 16 GM (FLONASE) SCH (09:39)
[2016-08-08 12:10] VITALS: BP 138/64
== END 2016-08-08 14:11 | disposition home or self-care (01) | DRG 190 ==
LOC: M ED 23:28 → M ED INP 08-03 04:34 → M MS5PR 08-03 05:42
PROVIDERS: ADMIT Hospitalist; ATTEND General Practice
DX: J44.0 Chronic obstructive pulmonary disease with (acute) lower respiratory infection (principal); J96.01 Acute respiratory failure with hypoxia; J12.9 Viral pneumonia, unspecified; J44.1 Chronic obstructive pulmonary disease with (acute) exacerbation; B97.4 Respiratory syncytial virus as the cause of diseases classified elsewhere; I12.9 Hypertensive chronic kidney disease with stage 1 through stage 4 chronic kidney disease, or unspecified chronic kidney disease; E78.5 Hyperlipidemia, unspecified; Z86.73 Personal history of transient ischemic attack (TIA), and cerebral infarction without residual deficits; N18.3 Chronic kidney disease, stage 3 (moderate); Z87.891 Personal history of nicotine dependence; Z79.899 Other long term (current) drug therapy; Z79.82 Long term (current) use of aspirin; N40.0 Benign prostatic hyperplasia without lower urinary tract symptoms

== ENCOUNTER 2016-10-08 20:28 | Emergency (ER) | payer MEDICARE ==
[~2016-10-08] VITALS: Ht 177.8 cm; Wt 78.0 kg
[~2016-10-08 20:28] MED LIST changes: +PRED10PA2 PO
[2016-10-08] MEDS ORDERED: ZITHTAB PO (22:33)
[2016-10-08] MEDS ORDERED: PRED20TA PO (22:33)
[2016-10-08 23:00] VITALS: BP 162/70
--- NOTE | 2016-10-09 09:10 | REP ---
TWO VIEW CHEST: Two views of the chest are performed. Scattered interstitial fibrosis is stable. There is no acute infiltrate or pulmonary edema. There is some calcification of the thoracic aorta. Mediastinal silhouette is unchanged. The heart is not significantly enlarged. There is mild right apical pleural thickening which is stable. There are degenerative changes of the spine. IMPRESSION: Chronic changes are stable without evidence of acute infiltrate. Signed by Homero Gomez MD 10/09/2016 12:57 P
== END 2016-10-08 23:02 | disposition home or self-care (01) ==
LOC: EDBD 20:28 → M ED 21:51
DX: J44.1 Chronic obstructive pulmonary disease with (acute) exacerbation (principal); I10 Essential (primary) hypertension; E78.5 Hyperlipidemia, unspecified; G89.29 Other chronic pain; M54.9 Dorsalgia, unspecified; N28.9 Disorder of kidney and ureter, unspecified; N40.0 Benign prostatic hyperplasia without lower urinary tract symptoms; I63.9 Cerebral infarction, unspecified; Z87.891 Personal history of nicotine dependence; Z79.82 Long term (current) use of aspirin; Z79.899 Other long term (current) drug therapy

== ENCOUNTER → 2016-12-20 | Outpatient (REF) | payer MEDICARE ==
[~2016-12-20] MED LIST changes: +PRED20TA PO; +ZITHTAB PO
[2016-12-20 14:04] LABS: MICROSCOPIC INDICATED? MAN NO (NO)
== END ==
LOC: M WUC 12:24
PROVIDERS: ATTEND Physician Assistant
DX: R32 Unspecified urinary incontinence (principal)

== ENCOUNTER → 2016-12-20 | Outpatient (CLI) | payer MEDICARE ==
[2016-12-20 12:01] LABS: CALCIUM LEVEL 8.7 MG/DL (8.8-10.2); CREATININE FOR GFR 1.42 MG/DL (0.70-1.30); GLOMERULAR FILTRATION RATE 51.6 (>42); POTASSIUM SERUM 4.4 MEQ/L (3.5-5.1)
[2016-12-20 12:43] LABS: MEAN CORPUSCULAR VOLUME 92.6 fl (80.0-96.0); WHITE BLOOD COUNT 13.5 K/mm3 (4.0-10.0)
[2016-12-20 12:44] LABS: BASO # 0.1 K/mm3 (0.0-0.2); BASO % 0.5 % (0.0-1.0); DIFF SLIDE NUMBER 109; EOS # 0.6 K/mm3 (0.0-0.50); EOS % 4.6 % (0.0-3.0); LARGE UNSTAINED CELL # 0.2 K/mm3 (0.0-0.4); LARGE UNSTAINED CELL % 1.4 % (0.0-4.0); LYMPH # 0.9 K/mm3 (1.5-4.5); LYMPH % 6.9 % (24.0-44.0); MEAN CORPUSCULAR HGB CONC 33.4 g/dl (32.0-36.5); MONO # 1.2 K/mm3 (0.0-0.8); MONO % 9.1 % (0.0-5.0); NEUTROPHILS # 10.5 K/mm3 (1.8-7.7); NEUTROPHILS % 77.5 % (36.0-66.0); PLATELET COUNT, AUTOMATED 250 k/mm3 (150-450); RED CELL DISTRIBUTION WIDTH 14.6 % (11.5-14.5)
== END ==
LOC: M WUC 09:24
PROVIDERS: ATTEND Physician Assistant
DX: R32 Unspecified urinary incontinence (principal)
CPT/HCPCS: 36415; 80048; 81002; 85025; 87086; G0103

== ENCOUNTER → 2017-01-09 | Outpatient (REF) | payer MEDICARE ==
[~2017-01-09] MED LIST changes: +ASPI1TAB PO; -AVEL1TAB PO; +AVEL1TAB3 PO; +FLOM5CAP PO; +FLON1SPR; +GABA-279 PO; +GABA-283 PO; +HYOS125TA PO; +LASI40TA PO; +LEVA1TAB2 PO; +LEVO500T3; +LEVO500T3 PO; -LEVO500T32 PO; +LORA0.5T11 PO; +METO1TAB32 PO; +MORP20SO3 PO; +PROTPAK PO; +SPIR1CAP INH; +TYLE500T78 PO
== END ==
LOC: M SMT 12:51
PROVIDERS: ATTEND Nurse Practitioner Women's Health
DX: R33.9 Retention of urine, unspecified (principal)
CPT/HCPCS: 81001; 87086; G0463

== ENCOUNTER → 2017-01-13 | Outpatient (CLI) | payer MEDICARE ==
--- NOTE | 2017-01-13 15:32 | REP ---
RENAL AND BLADDER ULTRASOUND: Real-time sonographic evaluation of kidneys performed. The kidneys are normal in size, right kidney measuring 11.1 x 5.0 x 5.3 cm, and left kidney 11.7 x 4.0 x 5.4 cm. There is diffuse increased echotexture of the kidneys suggesting medical renal disease. There is no hydronephrosis. There are multiple bilateral renal cysts. The largest on the right is in the upper pole measuring 2.3 x 2.0 x 2.0 cm. Largest on the left is in the upper pole measuring 2.0 x 1.8 x 1.5 cm. Urinary bladder measures 15.0 x 13.0 x 9.3 cm for a total volume of 928 mL. No bladder mass or calculus is seen. There are bilateral ureteral jets in the urinary bladder with Doppler color evaluation. Prostate measures 4.1 x 5.0 x 3.8 cm, total volume 40.4 mL. IMPRESSION: Increased echotexture of the kidneys suggests medical renal disease. No hydronephrosis. Bilateral renal cysts. No bladder mass identified. Signed by Homero Gomez MD 01/13/2017 04:44 P
== END ==
LOC: M SMT 12:58
PROVIDERS: ATTEND Nurse Practitioner Women's Health
DX: N40.0 Benign prostatic hyperplasia without lower urinary tract symptoms (principal)

== ENCOUNTER → 2017-02-16 | Outpatient (CLI) | payer MEDICARE ==
--- NOTE | 2017-02-16 16:59 | REP ---
Lumbar spine series: Five views: History: Cough and pain. Findings: Lumbar vertebral body heights are preserved. There is disc space narrowing at L4-5 which is more pronounced than on the comparison study of 12/07/2014. Discogenic spurring is seen. There is discogenic spurring at L3-4 and L2-3 as well. No subluxation is seen. No spondylolysis is noted there is osteoarthritic facet hypertrophy bilaterally at L5-S1 and L4-5, mild in degree. Impression: Degenerative disc disease at L4-5 radiographically a little more prominent than on the 2014 prior study. Signed by Ryan Mireles MD 02/16/2017 05:13 P
--- NOTE | 2017-02-16 17:06 | REP ---
Chest x-ray: Two views. History: Cough and pain. Comparison chest x-ray 02/03/2017. Findings: The lungs are hyperinflated consistent with some degree of COPD. Pleural angles are sharp. Heart is not enlarged. Pulmonary vasculature is not increased. Nipple silhouette projects in the right lung base. On lateral radiograph there is wedging of one of the mid-thoracic vertebrae. This is a new finding from the 02/03/2017 prior lateral chest x-ray. This appears to be the T7 level. There is approximate 50% loss of anterior vertebral body height. Impression: 1. interval osteoporotic wedge compression fracture deformity at what appears to be the T7 vertebral body. 2. Evidence of COPD. Otherwise no acute cardiopulmonary disease. Signed by Ryan Mireles MD 02/16/2017 05:13 P
== END ==
LOC: M WUC 15:44
PROVIDERS: ATTEND Nurse Practitioner Family
DX: R05 Cough (principal)

== ENCOUNTER 2017-04-05 07:54 | Emergency (ER) | payer MEDICARE ==
[~2017-04-05 07:54] MED LIST changes: -ASPI1TAB PO; -FLOM5CAP PO; -FLON1SPR; -GABA-279 PO; -GABA-283 PO; -HYOS125TA PO; -LASI40TA PO; -LEVA1TAB2 PO; -LEVO500T3; -LORA0.5T11 PO; -METO1TAB32 PO; -MORP20SO3 PO; -PROTPAK PO; -SPIR1CAP INH; -TYLE500T78 PO
[2017-04-05] MEDS ORDERED: FLOM5CAP PO (08:10)
[2017-04-05] MEDS ORDERED: METO1TAB32 PO (08:10)
[2017-04-05] MEDS ORDERED: SPIR1CAP INH (08:10)
[2017-04-05] MEDS ORDERED: PROTPAK PO (08:10)
[2017-04-05] MEDS ORDERED: LASI40TA PO (08:10)
[2017-04-05] MEDS ORDERED: LEVA1TAB2 PO (08:12)
[2017-04-05] MEDS ORDERED: GABA-283 PO (08:12)
[2017-04-05] MEDS ORDERED: TYLE500T78 PO (08:12)
[2017-04-05] MEDS: IPRATROPIUM 0.5MG/ALBUTEROL 2.5MG INH SOL UD 3ML (DUONEB)(J7620) NEB PRN ×3 (08:26→09:14)
[2017-04-05] MEDS ORDERED: ASPIRIN 81 MG CHEW TABLET PO ONE (08:30)
[2017-04-05] MEDS ORDERED: methylPREDNISolone INJ 125 MG/2 ML VIAL (J2930) IV ONE (08:30)
[2017-04-05 08:39] LABS: BASO # 0.1 10^3/uL (0.0-0.2); BASO % 0.6 % (0.0-1.0); EOS # 0.2 10^3/uL (0.0-0.50); EOS % 2.4 % (0.0-3.0); IMMATURE GRANULOCYTE % 1.4 % (0-0); LYMPH # 1.2 10^3/uL (1.5-4.5); LYMPH % 13.2 % (24.0-44.0); MEAN CORPUSCULAR HEMOGLOBIN 29.9 pg (27.0-33.0); MEAN CORPUSCULAR HGB CONC 32.8 g/dl (32.0-36.5); MEAN CORPUSCULAR VOLUME 91.2 fl (80.0-96.0); MONO # 1.2 10^3/uL (0.0-0.8); MONO % 13.2 % (0.0-5.0); NEUTROPHILS # 6.2 10^3/uL (1.8-7.7); NEUTROPHILS % 69.2 % (36.0-66.0); PLATELET COUNT, AUTOMATED 381 10^3/uL (150-450); RED CELL DISTRIBUTION WIDTH 16.2 % (11.5-14.5); WHITE BLOOD COUNT 8.9 10^3/uL (4.0-10.0)
[2017-04-05 08:43] LABS: ADD MANUAL DIFFER NO; DIFF SLIDE NUMBER 106
[2017-04-05 09:04] LABS: ALBUMIN 3.3 GM/DL (3.2-5.2); ALBUMIN/GLOBULIN RATIO 1.06 (1.00-1.93); BILIRUBIN,DIRECT 0.1 MG/DL (0.0-0.2); BILIRUBIN,TOTAL 0.4 MG/DL (0.2-1.0); CALCIUM LEVEL 8.9 MG/DL (8.8-10.2); CREATININE FOR GFR 1.48 MG/DL (0.70-1.30); GLOMERULAR FILTRATION RATE 49.2 (>42); POTASSIUM SERUM 3.6 MEQ/L (3.5-5.1); TOTAL PROTEIN 6.4 GM/DL (6.4-8.2)
[2017-04-05 10:43] VITALS: O2SAT 91
[2017-04-05] MEDS ORDERED: PRED20TA PO (11:31)
[2017-04-05 11:59] VITALS: BP 122/66
--- NOTE | 2017-04-05 12:46 | ECGEPIP ---
Stationary ECG Study [facility] - ED Test Date: 2017-04-05 Pat Name: MENDY ARREGUIN Department: Room: - Gender: M Gopherman: bobby : 1940 Requested By: JOE Chahal Order Number: [id number] Reading MD: Bibi Min Measurements Intervals [place] Rate: 73 P: 74 RI: 136 QRS: 42 QRSD: 101 T: 44 QT: 420 QTc: 464 Interpretive Statements SINUS RHYTHM WITH OCCASIONAL VENTRICULAR PREMATURE COMPLEXES POSSIBLE RIGHT VENTRICULAR CONDUCTION DELAY MODERATE ST DEPRESSION SIMILAR 08/06/15 Electronically Signed On 04-05-2017 12:46:52 EDT by Bibi Min
--- NOTE | 2017-04-06 10:51 | REP ---
REASON: Dyspnea. COMPARISON: 03/08/2017 The technique utilized in obtaining the radiograph has magnified the cardiac silhouette and accentuated the interstitial markings. There is interstitial fibrotic change, status quo. The lung ness are hypo-expanded. There could be a possible developing basilar opacity on the right, however, the patient is tilted and rotated to the right. Mild cardiomegaly cannot be ruled out. There is no change in the osseous structures. IMPRESSION: There are chronic changes and technical considerations as described above. I see no definite acute cardiopulmonary disease, however, clinical correlation is necessary. Signed by Tyrone Grace DO 04/06/2017 12:12 P
[2017-04-06] MEDS ORDERED: LEVO500T3 (12:17)
[2017-04-06] MEDS ORDERED: ASPI1TAB PO (13:22)
[2017-04-06] MEDS ORDERED: PRED20TA PO (13:22)
[2017-04-06] MEDS ORDERED: GABA-279 PO (13:22)
[2017-04-06] MEDS ORDERED: FLON1SPR (13:22)
[2017-05-05] MEDS ORDERED: HYOS125TA PO (09:32)
[2017-05-05] MEDS ORDERED: LORA0.5T11 PO (09:32)
[2017-05-05] MEDS ORDERED: MORP20SO3 PO (09:32)
== END 2017-04-05 12:00 | disposition home or self-care (01) ==
LOC: M ED 07:54
DX: J44.1 Chronic obstructive pulmonary disease with (acute) exacerbation (principal); I10 Essential (primary) hypertension; Z86.73 Personal history of transient ischemic attack (TIA), and cerebral infarction without residual deficits; E78.5 Hyperlipidemia, unspecified; N18.9 Chronic kidney disease, unspecified; F32.9 Major depressive disorder, single episode, unspecified; Z87.891 Personal history of nicotine dependence; Z79.82 Long term (current) use of aspirin; Z79.899 Other long term (current) drug therapy